=== PATIENT | female | born 1970 | race Caucasian/White ===

== ENCOUNTER → 2022-01-26 14:23 | Outpatient (BNVA) | payer OTHER, SELFPAY | PROVIDERS: PCP Internal Medicine; Visit Provider Nurse Practitioner Family | DX: G43.009 Migraine without aura, not intractable, without status migrainosus (principal); G44.84 Primary exertional headache; M54.2 Cervicalgia; R23.2 Flushing; R06.83 Snoring; G47.19 Other hypersomnia; Z79.899 Other long term (current) drug therapy | CPT/HCPCS: 99202 ==

== ENCOUNTER → 2022-02-02 13:43 | Outpatient (REF) | payer OTHER, SELFPAY | LOC: HO.SL 13:43 | PROVIDERS: PCP Internal Medicine; Visit Provider Nurse Practitioner Family | DX: G47.19 Other hypersomnia (principal); G47.9 Sleep disorder, unspecified; R06.83 Snoring | CPT/HCPCS: 95806 ==

== ENCOUNTER → 2022-03-26 12:32 | Outpatient (BNVA) | payer OTHER, SELFPAY | PROVIDERS: PCP Internal Medicine; Visit Provider Nurse Practitioner Family | DX: G43.009 Migraine without aura, not intractable, without status migrainosus (principal); M54.2 Cervicalgia; G44.84 Primary exertional headache; G47.19 Other hypersomnia; G47.9 Sleep disorder, unspecified; R06.83 Snoring | CPT/HCPCS: 99212 ==

== ENCOUNTER → 2022-04-15 13:27 | Outpatient (BNVA) | payer OTHER, SELFPAY | PROVIDERS: PCP Internal Medicine; Visit Provider Nurse Practitioner Family | DX: G43.009 Migraine without aura, not intractable, without status migrainosus (principal) | CPT/HCPCS: 99211 ==

== ENCOUNTER → 2022-07-21 10:41 | Outpatient (BNVA) | payer OTHER, SELFPAY | PROVIDERS: PCP Internal Medicine; Visit Provider Nurse Practitioner Family | DX: G43.009 Migraine without aura, not intractable, without status migrainosus (principal); M54.2 Cervicalgia; Z79.899 Other long term (current) drug therapy | CPT/HCPCS: 99212 ==

== ENCOUNTER 2022-08-30 09:57 | Emergency (ER) | payer OTHER, SELFPAY ==
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
[2022-08-30 10:20] VITALS: BP 140/87; PULSE 73; RESP 13; TEMP 36.9; O2SAT 100
[2022-08-30 10:40] VITALS: BP 140/87; PULSE 73; RESP 13; TEMP 36.9; O2SAT 100; BMI 30.7
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
[2022-08-30] MEDS: Cyclobenzaprine HCl 10 MG TABLET PO (11:18)
== END 2022-08-30 11:25 | disposition home or self-care (01) ==
PROVIDERS: Emergency Provider Student in an Organized Health Care Education/Training Program; PCP Internal Medicine
DX: S13.4XXA Sprain of ligaments of cervical spine, initial encounter (principal); S80.12XA Contusion of left lower leg, initial encounter; M54.50 Low back pain, unspecified; V43.62XA Car passenger injured in collision with other type car in traffic accident, initial encounter; Y93.9 Activity, unspecified; Y92.410 Unspecified street and highway as the place of occurrence of the external cause; Y99.9 Unspecified external cause status; Z79.899 Other long term (current) drug therapy
CPT/HCPCS: 72100; 73590; 99284

== ENCOUNTER 2023-01-20 07:36 | Outpatient (AMB) | payer OTHER, SELFPAY ==
[2023-01-20 07:54] VITALS: BP 140/98; PULSE 68; O2SAT 100; BMI 31.4
--- NOTE | 2023-01-20 07:54 | MHC.OFFVIS ---
Intake Vital Signs 01/20/23 07:54 Height 5 ft 10 in Weight 219 lb BMI 31.4 BP 140/98 H Blood Pressure Location Lt brachial Position Sitting Pulse 68 Pulse Source Pulse Oximeter Pulse Oximetry (%) 100 Oxygen Delivery Method Room Air Intake Visit Reasons: 6m follow up / LVM Intake Note: Patient presents for 6 month follow up. Allergies ibuprofen [From MOTRIN] Allergy (Unknown, Verified 01/20/23 07:56) ABDOMINAL PAIN Medication List - Last Reconciled 01/20/23 by FUNMI Castellanos amitriptyline 10 mg PO BEDTIME 30 days atorvastatin 40 mg PO BEDTIME blood sugar diagnostic (Freestyle [employer] strips) As directed cholecalciferol (vitamin D3) 50 mcg PO DAILY cyclobenzaprine 10 mg PO BEDTIME PRN ergocalciferol (vitamin D2) 1,250 mcg PO QWEEK gabapentin 600 mg PO QID galcanezumab-gnlm (Emgality Pen) 120 mg subcut ONCE 30 days lancets (FreeStyle Lancets) As directed lisinopril-hydrochlorothiazide 20-25 mg 1 tab PO DAILY magnesium oxide 400 mg PO BEDTIME 30 days meloxicam 15 mg PO DAILY metformin 1,000 mg PO BID omeprazole 20 mg PO DAILY propranolol 20 mg PO TID sertraline 100 mg PO DAILY simethicone (Gas Relief (simethicone)) 160 mg PO BID sucralfate PO sumatriptan succinate 50 - 100 mg orally at onset of headache, may repeat in 2 hrs PRN; max 2 tabs per day or 4 tabs/week (may take with Ibuprofen) 30 days topiramate 100 mg PO BID HPI HPI Comments History of Present Illness Details 52-yr-old female presents for f/u visit. Pt denies any significant interval medical changes. Pt reports her migraine and headache attacks are better with Emgality. She is still compliant w/ Topiramate, Prpranolol, and Gabapentin. She is needing to use Sumatriptan twice a month w/ effect. She denies any adverse effects. [facility] Surgical History H/O hernia repair H/O wrist surgery Hx of appendectomy Hx of laparoscopic adjustable gastric banding Family History Mother Cancer Maternal Grandmother Cancer Social History Alcohol intake: never Patient Tobacco Use Status: Never used Tobacco Review of Systems Const All systems reviewed & are unremarkable except as noted in HPI and below Physical Exam Vital Signs: Last Vital Signs Pulse 68 01/20/23 07:54 BP 140/98 H 01/20/23 07:54 Pulse Ox 100 01/20/23 07:54 Oxygen Delivery Method Room Air 01/20/23 07:54 BMI result Body Mass Index 31.4 Const General: cooperative and no acute distress Orientation/consciousness: patient oriented x3 HEENT Head: Yes normocephalic Resp Effort & Inspection: normal respiratory effort and able to speak in complete sentences Neuro General: patient oriented x3, gait normal and CN's II-XI intact bilaterally Cognition (Neuro): normal cognition Motor exam (neuro): 5/5 motor strength present throughout Psych Appearance: grossly normal Mental Status: mental status grossly normal Speech and movement: Normal speech and movement present Affect: normal affect Attitude: cooperative Thought process: Normal thought process present Assessment & Plan Assessment & Plan (1) Migraine without aura: Code(s): G43.009 - Migraine without aura, not intractable, without status migrainosus (2) Exertional headache: Comment: provoked by laughing Code(s): G44.84 - Primary exertional headache Plan For cervicalgia: Monitor clinically ? For acute headache treatment: Continue Sumatriptan prn. May take w/ Ibuprofen or Tylenol. Previous acute migraine medication trials: unsure Acute migraine medication contraindications:none at this time. ? For headache prevention medication: Continue Magnesium 400mg qhs Continue Emgality 120mg sc q month, as pt is experiencing good clinical results from use. For now, continue Topiramate 100mg bid, Propranolol 20mg TID and Gabapentin 600mg QID. Previous migraine prevention medication trials: Topiramate 100mg bid, Propranolol 20mg TID, Gabapentin 600mg QID, Amitriptyline 10mg qhs- ineffective. Migraine prevention medication contraindications: Aimovig d/t constipation. Future considerations- Botox tx. ? f/u in 6 months or sooner prn. Medications: Refilled galcanezumab-gnlm (Emgality Pen) 120 mg subcut ONCE 1 mL 6RF 30 days G43.009 - Migraine without aura, not intractable, without status migrainosus sumatriptan succinate 50 - 100 mg orally at onset of headache, may repeat in 2 hrs PRN; max 2 tabs per day or 4 tabs/week (may take with Ibuprofen) 12 tabs 6RF migraine headache 30 days magnesium oxide may hold for loose stools 400 mg PO BEDTIME 30 tabs 6RF 30 days Discontinued amitriptyline Discontinued Reason: Patient Completed Course 10 mg PO BEDTIME 30 days 30 tabs 3RF Coding Level of Care Code Est Pt Level 4 (74929) Diagnoses Migraine without aura G43.009 Exertional headache G44.84
== END 2023-01-20 08:18 | disposition home or self-care (01) ==
PROVIDERS: PCP Internal Medicine; Visit Provider Nurse Practitioner Family
DX: G43.009 Migraine without aura, not intractable, without status migrainosus (principal); G44.84 Primary exertional headache
CPT/HCPCS: 99214

== ENCOUNTER → 2023-01-20 07:36 | Outpatient (BNVA) | payer OTHER, SELFPAY | PROVIDERS: PCP Internal Medicine; Visit Provider Nurse Practitioner Family | DX: G43.009 Migraine without aura, not intractable, without status migrainosus (principal); G44.84 Primary exertional headache | CPT/HCPCS: 99212 ==

== ENCOUNTER 2023-05-28 13:38 | Outpatient (REF) | payer OTHER, SELFPAY ==
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
== END 2023-05-28 13:39 | disposition home or self-care (01) ==
LOC: HO.NEURO 13:38
PROVIDERS: PCP Internal Medicine; Visit Provider Orthopaedic Surgery
DX: G56.02 Carpal tunnel syndrome, left upper limb (principal)
CPT/HCPCS: 95886; 95909

== ENCOUNTER → 2023-05-28 13:46 | Outpatient (BNV) | payer OTHER, SELFPAY | PROVIDERS: PCP Internal Medicine; Visit Provider Physical Medicine & Rehabilitation | DX: M79.632 Pain in left forearm (principal) | CPT/HCPCS: 95886; 95909 ==

== ENCOUNTER 2023-07-22 07:37 | Outpatient (AMB) | payer OTHER, SELFPAY ==
--- NOTE | 2023-07-22 07:53 | A.OFFVIS_ITS ---
Vital Signs 07/22/23 07:54 Height 5 ft 10 in Weight 226 lb BMI 32.4 BP 124/76 Blood Pressure Location Rt brachial Position Sitting Pulse 51 Pulse Source Pulse Oximeter Pulse Oximetry (%) 98 Oxygen Delivery Method Room Air Intake Visit Reasons: 6 mo f/u - Migraines-CONF Intake Note: Patient presents for 6 month follow up. patient migraine injection is helping a lot . Community Organization Worker Required: Yes Community Organization Worker Name: Tish Berg Allergies ibuprofen [From MOTRIN] Allergy (Unknown, Verified 07/22/23 07:57) ABDOMINAL PAIN Medication List - Last Reconciled 07/22/23 by FUNMI Castellanos atorvastatin 40 mg PO BEDTIME blood sugar diagnostic (Freestyle In[employer] strips) As directed cholecalciferol (vitamin D3) 50 mcg PO DAILY cyclobenzaprine 10 mg PO BEDTIME PRN ergocalciferol (vitamin D2) 1,250 mcg PO QWEEK gabapentin 600 mg PO QID galcanezumab-gnlm (Emgality Pen) 120 mg subcut ONCE 30 days lancets (FreeStyle Lancets) As directed lisinopril-hydrochlorothiazide 20-25 mg 1 tab PO DAILY magnesium oxide 400 mg PO BEDTIME 30 days meloxicam 15 mg PO DAILY metformin 1,000 mg PO BID omeprazole 20 mg PO DAILY propranolol 20 mg PO TID sertraline 100 mg PO DAILY simethicone (Gas Relief (simethicone)) 160 mg PO BID sucralfate PO sumatriptan succinate 50 - 100 mg orally at onset of headache, may repeat in 2 hrs PRN; max 2 tabs per day or 4 tabs/week (may take with Ibuprofen) 30 days topiramate 100 mg PO BID HPI Comments Details: 53-yr-old female presents for f/u visit. Pt denies any significant interval medical changes. Pt is asking if her Emgality needs to be held prior to her upcoming knee surgery. Pt states she is only having an occasional milder headache that resolves after taking Sumtriptan. She is compliant w/ Emgality, Propranolol, Topiramate. States has regular eye exams. Denies kidney stones. States her neck can be painful which is sometimes a/w bilateral hand pain, and sometimes weakness. She states it is her back that is most bothersome- she has had cortisone injections, but this has not been helping. She is f/b Family Physiatry- pt states for her back but not her neck. Baseline headache characteristics: Severe, pressure pain starting in either the left gnosticism and moves into the left eye, or in the bridge of her nose and moves up- both are a pressure type pain a/w blurry vision, diplopia (can be horizontal or vertical), allodynia, top of head coldness and pins/needles, photophobia, phonophobia, osmophobia, nausea, vomiting, internal head spinning and feeling off balance, brain fog, activity intolerance, nose and cheeks become red, left facial droop and left sided weakness.. [facility] Surgical History H/O hernia repair Hx of appendectomy H/O wrist surgery Hx of laparoscopic adjustable gastric banding Family History Mother Cancer Maternal Grandmother Cancer Social History Alcohol intake: never Patient Tobacco Use Status: Never used Tobacco Physical Exam Vital Signs: Last Vital Signs Pulse 51 07/22/23 07:54 BP 124/76 07/22/23 07:54 Pulse Ox 98 07/22/23 07:54 Oxygen Delivery Method Room Air 07/22/23 07:54 BMI result Body Mass Index 32.4 Const General: cooperative and no acute distress Orientation/consciousness: patient oriented x3 Resp Effort & Inspection: normal respiratory effort and able to speak in complete sentences Neuro Other: Slow to stand, standing elicits back pain, antalgic gait. General: patient oriented x3 Cranial nerves: Yes CN's II-XII intact bilaterally Cognition (Neuro): normal cognition Psych Appearance: grossly normal Mental Status: mental status grossly normal Speech and movement: Normal speech and movement present Affect: normal affect Attitude: cooperative Assessment & Plan Assessment & Plan (1) Migraine without aura: Code(s): G43.009 - Migraine without aura, not intractable, without status migrainosus Category: Medical (2) Cervicalgia: Code(s): M54.2 - Cervicalgia Category: Medical Plan For cervicalgia: Will request notes and work-up from Family Physiatry. If not recently completed, will consider f/u c-spine imaging. ? For acute headache treatment: Continue Sumatriptan prn. May take w/ Ibuprofen or Tylenol. Previous acute migraine medication trials: unsure Acute migraine medication contraindications:none at this time. ? For headache prevention medication: Continue Magnesium 400mg qhs Continue Emgality 120mg sc q month, as pt is experiencing good clinical results from use. For now, continue Topiramate 100mg bid, Propranolol 20mg TID and Gabapentin 600mg QID. Previous migraine prevention medication trials: Topiramate 100mg bid, Propranolol 20mg TID, Gabapentin 600mg QID, Amitriptyline 10mg qhs- ineffective. Migraine prevention medication contraindications: Aimovig d/t constipation. Future considerations- Botox tx. ? f/u in 6 months or sooner prn. Medications: Refilled magnesium oxide may hold for loose stools 400 mg PO BEDTIME 30 tabs 6RF 30 days sumatriptan succinate 50 - 100 mg orally at onset of headache, may repeat in 2 hrs PRN; max 2 tabs per day or 4 tabs/week (may take with Ibuprofen) 12 tabs 6RF migraine headache 30 days Coding Level of Care Code Est Pt Level 4 (75115) Diagnoses Migraine without aura G43.009 Cervicalgia M54.2
[2023-07-22 07:54] VITALS: BP 124/76; PULSE 51; O2SAT 98; BMI 32.4
== END 2023-07-22 08:30 | disposition home or self-care (01) ==
PROVIDERS: PCP Internal Medicine; Visit Provider Nurse Practitioner Family
DX: G43.009 Migraine without aura, not intractable, without status migrainosus (principal); M54.2 Cervicalgia
CPT/HCPCS: 99214

== ENCOUNTER → 2023-07-22 07:37 | Outpatient (BNVA) | payer OTHER, SELFPAY | PROVIDERS: PCP Internal Medicine; Visit Provider Nurse Practitioner Family | DX: G43.009 Migraine without aura, not intractable, without status migrainosus (principal); M54.2 Cervicalgia | CPT/HCPCS: 99212 ==

== ENCOUNTER 2024-02-15 08:42 | Outpatient (AMB) | payer OTHER, SELFPAY ==
--- NOTE | 2024-02-15 08:47 | MHC.OFFVIS ---
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: No Accompanied by: Self / Same As Patient Allergies ibuprofen [From MOTRIN] Allergy (Unknown, Verified 02/15/24 08:52) ABDOMINAL PAIN Medication List - Last Reconciled 02/15/24 by FUNMI Castellanos atorvastatin 40 mg PO BEDTIME blood sugar diagnostic (Freestyle [employer] strips) As directed cholecalciferol (vitamin D3) 50 mcg PO DAILY cyclobenzaprine 10 mg PO BEDTIME PRN ergocalciferol (vitamin D2) 1,250 mcg PO QWEEK gabapentin 600 mg PO QID galcanezumab-gnlm (Emgality Pen) 120 mg subcut ONCE 30 days lancets (FreeStyle Lancets) As directed lisinopril-hydrochlorothiazide 20-25 mg 1 tab PO DAILY magnesium oxide 400 mg PO BEDTIME 30 days meloxicam 15 mg PO DAILY metformin 1,000 mg PO BID omeprazole 20 mg PO DAILY propranolol 20 mg PO TID sertraline 100 mg PO DAILY simethicone (Gas Relief (simethicone)) 160 mg PO BID sucralfate PO sumatriptan succinate 50 - 100 mg orally at onset of headache, may repeat in 2 hrs PRN; max 2 tabs per day or 4 tabs/week (may take with Ibuprofen) 30 days topiramate 100 mg PO BID trazodone 50 mg PO BEDTIME PRN Do you need a note to return to daycare/school/sports/work: No HPI Comments Details: 53-yr-old female presents for f/u visit of sleep and migraine Pt reports she underwent right TKR approx 6 months ago, and her knee is feeling much better. Pt reports her migarines are well-controlled. She states she is having just an occasional milder headache that resolves after taking Sumtriptan. She is compliant w/ Emgality, Propranolol, Topiramate. Using Sumatriptan once a month. States has regular eye exams. Denies kidney stones. Baseline headache characteristics: Severe, pressure pain starting in either the left yarsanism and moves into the left eye, or in the bridge of her nose and moves up- both are a pressure type pain a/w blurry vision, diplopia (can be horizontal or vertical), allodynia, top of head coldness and pins/needles, photophobia, phonophobia, osmophobia, nausea, vomiting, internal head spinning and feeling off balance, brain fog, activity intolerance, nose and cheeks become red, left facial droop and left sided weakness.. Patient states that her neck is still prone to being tight and painful. She is f/b Family Physiatry. For chronic low back pain, and states that they will address her neck symptoms if I put a referral in for them to specifically address her neck. She also notes that she has been having difficulty falling asleep. She states that she usually goes to bed at 19:00, but does not fall asleep till 00:00, and wakes up around 08:00. She notes that when she is not sleeping well she can become more anxious. But also when she is more anxious, she may not sleep as well. She is prone to ruminating thoughts. She tends to watch TV in her living room. She can not exercise for very long, states about 5 minutes, due to her body pains. She denies taking any caffeinated products. [facility] Surgical History H/O hernia repair Hx of appendectomy H/O wrist surgery Hx of laparoscopic adjustable gastric banding Family History Mother Cancer Maternal Grandmother Cancer Social History Alcohol intake: never Patient Tobacco Use Status: Never used Tobacco Physical Exam Vital Signs: Last Vital Signs Pulse 62 02/15/24 08:48 BP 144/100 H 02/15/24 08:48 Pulse Ox 98 02/15/24 08:48 Oxygen Delivery Method Room Air 02/15/24 08:48 BMI result Body Mass Index 32.9 Const General: cooperative and no acute distress Orientation/consciousness: patient oriented x3 Resp Effort & Inspection: normal respiratory effort and able to speak in complete sentences Neuro Other: Slow to stand, antalgic gait. General: patient oriented x3 Cranial nerves: Yes CN's II-XII intact bilaterally Cognition (Neuro): normal cognition Psych Appearance: grossly normal Mental Status: mental status grossly normal Speech and movement: Normal speech and movement present Affect: normal affect Attitude: cooperative Assessment & Plan Assessment & Plan (1) Migraine without aura: Code(s): G43.009 - Migraine without aura, not intractable, without status migrainosus Category: Medical (2) Cervicalgia: Code(s): M54.2 - Cervicalgia Category: Medical (3) Sleep difficulties: Code(s): G47.9 - Sleep disorder, unspecified Category: Medical Plan For cervicalgia: Referral placed to Family Physiatry. For sleep difficulties: Discussed that patient likely does not need to go to bed at 19:00, if she is actually sleeping between midnight and 08:00, as 8 hours of nightly sleep is within normal range. Discussed that current evidence suggests sleeping greater than 9 hours and less than 6 hours at night are both associated with overall negative health outcomes. Reviewed strategies to optimize her sleep hygiene. Such as going to bed between 11 and 00:00. Increasing paste physical activity earlier in the day. Engaging in relaxing activities in the later day and evening. [place] sleep hygiene education she shared with patient. ? For acute headache treatment: Continue Sumatriptan prn. May take w/ Ibuprofen or Tylenol. Previous acute migraine medication trials: unsure Acute migraine medication contraindications:none at this time. ? For headache prevention medication: Continue Magnesium 400mg qhs Continue Emgality 120mg sc q month, as pt is experiencing good clinical results from use. For now, continue Topiramate 100mg bid, Propranolol 20mg TID and Gabapentin 600mg QID. Previous migraine prevention medication trials: Topiramate 100mg bid, Propranolol 20mg TID, Gabapentin 600mg QID, Amitriptyline 10mg qhs- ineffective. Migraine prevention medication contraindications: Aimovig d/t constipation. Future considerations- Botox tx. ? f/u in 6 months or sooner prn. Orders: Referrals Physiatry Referral M54.2 - Cervicalgia Medications: Refilled galcanezumab-gnlm (Emgality Pen) 120 mg subcut ONCE 30 days 1 mL 6RF G43.009 - Migraine without aura, not intractable, without status migrainosus sumatriptan succinate (0.5 - 1 x 100 mg) 50 - 100 mg orally at onset of headache, may repeat in 2 hrs PRN; max 2 tabs per day or 4 tabs/week (may take with Ibuprofen) 30 days 12 tabs 6RF migraine headache Coding Level of Care Code Est Pt Level 4 (24073) Diagnoses Migraine without aura G43.009 Cervicalgia M54.2 Sleep difficulties G47.9
[2024-02-15 08:48] VITALS: BP 144/100; PULSE 62; O2SAT 98; BMI 32.9
== END 2024-02-15 09:36 | disposition home or self-care (01) ==
PROVIDERS: PCP Internal Medicine; Visit Provider Nurse Practitioner Family
DX: G43.009 Migraine without aura, not intractable, without status migrainosus (principal); M54.2 Cervicalgia; G47.9 Sleep disorder, unspecified
CPT/HCPCS: 99214

== ENCOUNTER → 2024-02-15 08:42 | Outpatient (BNVA) | payer OTHER, SELFPAY | PROVIDERS: PCP Internal Medicine; Visit Provider Nurse Practitioner Family | DX: G43.009 Migraine without aura, not intractable, without status migrainosus (principal); G47.9 Sleep disorder, unspecified; M54.2 Cervicalgia | CPT/HCPCS: 99212 ==

== ENCOUNTER 2024-07-27 09:50 | Outpatient (AMB) | payer OTHER, SELFPAY ==
--- NOTE | 2024-07-27 09:55 | MHC.OFFVIS ---
Vital Signs 07/27/24 09:56 Height 5 ft 10 in Weight 234 lb 2 oz BMI 33.6 BP 122/89 Blood Pressure Location Lt brachial Position Sitting Pulse 83 Pulse Source Pulse Oximeter Pulse Oximetry (%) 97 Oxygen Delivery Method Room Air Intake Visit Reasons: Follow up 6mo Intake Note: Patient here for a follow-up. 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 Accompanied by: Daughter Allergies ibuprofen [From MOTRIN] Allergy (Unknown, Verified 07/27/24 10:09) ABDOMINAL PAIN Medication List - Last Reconciled 07/27/24 by FUNMI Castellanos atorvastatin 40 mg PO BEDTIME blood sugar diagnostic (Freestyle [employer] strips) As directed cholecalciferol (vitamin D3) 50 mcg PO DAILY cyclobenzaprine 10 mg PO BEDTIME PRN ergocalciferol (vitamin D2) 1,250 mcg PO QWEEK gabapentin 600 mg PO QID galcanezumab-gnlm (Emgality Pen) 240 mg (2 mL) subcut ONCE 30 days lancets (FreeStyle Lancets) As directed lisinopril-hydrochlorothiazide 20-25 mg 1 tab PO DAILY magnesium oxide 400 mg PO BEDTIME 30 days meloxicam 15 mg PO DAILY metformin 1,000 mg PO BID omeprazole 20 mg PO DAILY propranolol 20 mg PO TID sertraline 100 mg PO DAILY simethicone (Gas Relief (simethicone)) 160 mg PO BID sumatriptan succinate 50 - 100 mg orally at onset of headache, may repeat in 2 hrs PRN; max 2 tabs per day or 4 tabs/week (may take with Ibuprofen) 30 days topiramate 100 mg PO BID trazodone 50 mg PO BEDTIME PRN Do you need a note to return to daycare/school/sports/work: No HPI Comments Details: 54-yr-old female presents for f/u visit of sleep and migraine Pt reports had an interval lumbar injection, which helped some but she needs to have a l-spine MRI. F/b [facility]. Pt reports her migraines are well-controlled, as long as she has her Emgality. Unfortunately, a few months ago, she did not receive her Emgality for 2 months d/t insurance/pharmacy issue. And during this time, she had a marked increase in her migraines. However, since resuming Emgality (we restarted her w/ the loading dose)- her migraines have decreased significantly. Rarely having a breakthrough migraine attack. She states she is again having just an occasional milder headache that resolves after taking Sumtriptan. She is alsocompliant w/ Gabapentin, Propranolol, Topiramate. Using Sumatriptan once a month. Denies vision changes- has not had a recent eye exam. Denies kidney stones. Baseline headache characteristics: Severe, pressure pain starting in either the left mandaeism and moves into the left eye, or in the bridge of her nose and moves up- both are a pressure type pain a/w blurry vision, diplopia (can be horizontal or vertical), allodynia, top of head coldness and pins/needles, photophobia, phonophobia, osmophobia, nausea, vomiting, internal head spinning and feeling off balance, brain fog, activity intolerance, nose and cheeks become red, left facial droop and left sided weakness.. [facility] Surgical History H/O hernia repair Hx of appendectomy H/O wrist surgery Hx of laparoscopic adjustable gastric banding Family History Mother Cancer Maternal Grandmother Cancer Social History Alcohol intake: never Patient Tobacco Use Status: Never used Tobacco Physical Exam Vital Signs: Last Vital Signs Pulse 83 07/27/24 09:56 BP 122/89 07/27/24 09:56 Pulse Ox 97 07/27/24 09:56 Oxygen Delivery Method Room Air 07/27/24 09:56 BMI result Body Mass Index 33.6 Const General: cooperative and no acute distress Orientation/consciousness: patient oriented x3 Resp Effort & Inspection: normal respiratory effort and able to speak in complete sentences Neuro Other: Slow to stand, antalgic gait. General: patient oriented x3 Cranial nerves: Yes CN's II-XII intact bilaterally Cognition (Neuro): normal cognition Psych Appearance: grossly normal Mental Status: mental status grossly normal Speech and movement: Normal speech and movement present Affect: normal affect Attitude: cooperative Assessment & Plan Assessment & Plan (1) Migraine without aura: Code(s): G43.009 - Migraine without aura, not intractable, without status migrainosus Category: Medical (2) Cervicalgia: Code(s): M54.2 - Cervicalgia Category: Medical (3) Sleep difficulties: Code(s): G47.9 - Sleep disorder, unspecified Category: Medical Plan For cervicalgia and back pain: Follow-up w/ [facility] as scheduled. For sleep difficulties: Continue to optimize her sleep hygiene. Such as going to bed between 11 and 00:00. Increasing paste physical activity earlier in the day. Engaging in relaxing activities in the later day and evening. [place]altese sleep hygiene education she shared with patient. ? For acute headache treatment: Continue Sumatriptan prn. May take w/ Ibuprofen or Tylenol. Previous acute migraine medication trials: unsure Acute migraine medication contraindications:none at this time. ? For headache prevention medication: Continue Magnesium 400mg qhs Continue Emgality 120mg sc q month, as pt is experiencing good clinical results from use (Has had > 30% reduction in monthly migraine days from use). Continue Topiramate 100mg bid, Propranolol 20mg TID and Gabapentin 600mg QID. Advised to have regualr eye exams while on Topiramate Previous migraine prevention medication trials: Topiramate 100mg bid, Propranolol 20mg TID, Gabapentin 600mg QID, Amitriptyline 10mg qhs- ineffective w/o Emgality. Migraine prevention medication contraindications: Aimovig d/t constipation. Future considerations- Botox tx. ? f/u in 6 months or sooner prn. Medications: Changed From galcanezumab-gnlm (Emgality Pen) 240 mg (2 mL) subcut ONCE 30 days 2 mL 0RF G43.009 - Migraine without aura, not intractable, without status migrainosus To galcanezumab-gnlm (Emgality Pen) 120 mg subcut Q30D 30 days 1 mL 6RF G43.009 - Migraine without aura, not intractable, without status migrainosus Refilled sumatriptan succinate (0.5 - 1 x 100 mg) 50 - 100 mg orally at onset of headache, may repeat in 2 hrs PRN; max 2 tabs per day or 4 tabs/week (may take with Ibuprofen) 30 days 12 tabs 6RF migraine headache Coding Level of Care Code Est Pt Level 4 (11941) Diagnoses Migraine without aura G43.009 Cervicalgia M54.2 Sleep difficulties G47.9
[2024-07-27 09:56] VITALS: BP 122/89; PULSE 83; O2SAT 97; BMI 33.6
--- OUTSIDE RECORDS SUMMARY | 2024-07-27 10:58 | XMS_ITS | Clinical Summary ---
Author Organization [facility] [address] [facility] Address [address] [place] [address] Phone Care Team Providers Care Telephone Installer Name Role Phone Radha Nash MD Primary Care Prov ider Allergies No known active allergies Medications galcanezumab-gnl m (Emgality Pen) 120 mg/mL injection pen Inject 1 mL (120 mg total) under the skin. 023 Active famotidine (PEPCID) 20 mg tablet Take 1 tablet (20 mg total) by mouth 2 (two) times a day. 024 Active simethicone (MYLICON) 80 mg chewable tablet Chew 1 tablet (80 mg total) every 6 (six) hours if needed. 022 Active hydroCHLOROthiaz mildred (HYDRODIURIL) 50 mg tablet Take 1 tablet (50 mg total) by mouth 1 (one) time each day. 023 Active MAGNESIUM OXIDE ORAL Take 40 mg by mouth 1 (one) time each day. 023 Active FREESTYLE LANCETS MISC 1 EA by extracorporeal route 1 (one) time each day. 022 Active sertraline (ZOLOFT) 100 mg tablet Take 1 tablet (100 mg total) by mouth 1 (one) time each day. Active SUMAtriptan (IMITREX) 100 mg tablet Take 1 tablet (100 mg total) by mouth. Active ursodioL (ACTIGALL) 300 mg capsule Take 2 capsules (600 mg total) by mouth 1 (one) time each day. For 180 days Active wheat dextrin (Benefiber Clear SF, dextrin,) 3 gram/3.5 gram powder in packet Take 4 g by mouth 1 (one) time each day. Active ergocalciferol (VITAMIN D-2) 1,250 mcg (50,000 unit) capsule Take 1 capsule (50,000 Units total) by mouth 1 (one) time per week. Active acetaminophen (TYLENOL) 500 mg tablet Take 2 tablets (1,000 mg total) by mouth every 8 (eight) hours if needed for mild pain. Active blood sugar diagnostic (FreeStyle Lite Strips) test strip 1 each by Other route 1 (one) time each day. Active celecoxib (CeleBREX) 200 mg capsule Take 1 capsule (200 mg total) by mouth. Active diphenhydrAMINE (BENADRYL) 25 mg capsule Take 1 capsule (25 mg total) by mouth every 6 (six) hours if needed for sleep. Active traZODone (DESYREL) 50 mg tablet Take 1 tablet (50 mg total) by mouth. Active lisinopril (PRINIVIL,ZESTRI L) 40 mg tablet Take 1 tablet (40 mg total) by mouth 1 (one) time each day. Active phentermine 15 mg capsuleIndicatio ns:Class 1 obesity due to excess calories with body mass index (BMI) of 34.0 to 34.9 in adult, unspecified whether serious comorbidity present Take 1 capsule (15 mg total) by mouth 1 (one) time each day before breakfast. Max Daily Amount: 15 mg 30 each 025 2024 Active topiramate (Topamax) 50 mg tabletIndication s:Class 1 obesity due to excess calories with body mass index (BMI) of 34.0 to 34.9 in adult, unspecified whether serious comorbidity present Take 1 tablet (50 mg total) by mouth at bedtime. 30 each 2 025 2024 Active metFORMIN (GLUCOPHAGE) 1,000 mg tablet Take 1 tablet (1,000 mg total) by mouth 2 (two) times a day with meals. 60 tablet 025 Active atorvastatin (LIPITOR) 40 mg tablet Take 1 tablet (40 mg total) by mouth 1 (one) time each day. 30 tablet 025 Active omeprazole (PriLOSEC) [address] capsule Take 1 capsule (40 mg total) by mouth 1 (one) time each day. Do not crush or chew. 30 each 025 Active gabapentin (NEURONTIN) 600 mg tablet Take 1 tablet (600 mg total) by mouth 3 (three) times a day if needed (pain). 120 tablet 025 Active metFORMIN (GLUCOPHAGE) 1,000 mg tablet Take 1 tablet (1,000 mg total) by mouth 2 (two) times a day with meals. 024 2024 Discontinued(R eorder) omeprazole (PriLOSEC) [address] capsule Take 1 capsule (40 mg total) by mouth. 023 2024 Discontinued(R eorder) topiramate (TOPAMAX) 100 mg tablet Take 1 tablet (100 mg total) by mouth 2 (two) times a day. 023 2024 Discontinued atorvastatin (LIPITOR) 40 mg tablet Take 1 tablet (40 mg total) by mouth 1 (one) time each day. 024 2024 Discontinued(R eorder) aspirin 81 mg EC tablet Take 1 tablet (81 mg total) by mouth 2 (two) times a day with meals. 024 2024 Discontinued(N on-compliance) traMADoL (ULTRAM) 50 mg tablet Take 1 tablet (50 mg total) by mouth. 024 2024 Discontinued(T herapy completed) gabapentin (NEURONTIN) 600 mg tablet TAKE 1 TABLET BY MOUTH FOUR TIMES A DAY 120 tablet 1 024 05/20/ 2025 Discontinued(R eorder) semaglutide (Wegovy) 2.4 mg/0.75 mL injection penIndications:C lass 1 obesity due to excess calories with serious comorbidity and body mass index (BMI) of 32.0 to 32.9 in adult,Type 2 diabetes mellitus with neurological manifestation ([facility]/HCC V24, [facility] V28),Hypertensio n, unspecified type,Mixed hyperlipidemia Inject 2.4 mg under the skin every 7 (seven) days. 3 mL 025 2024 Discontinued(A lternate therapy) Active Problems Problem Noted Date Diagnosed Date Rotator cuff tendinitis, left 11/24/2023 Class 1 obesity due to exces s calories with serious comorbidity and body mass index (BMI) of 33.0 to 33.9 in adult 11/24/2023 Gait instability 04/01/2023 Post-traumatic osteoarthritis of right knee 03/18 Primary osteoarthritis of left knee 04/01/2023 Left hand pain 01/01/2023 S/P gastric sleeve procedure 01/06/2022 Hepatomegaly 01/01/2022 Overview (04/23/2023): 19.1 cm US 12/01/21 [facility] ED Pelvic pain 06/04/2021 Overview (04/23/2023): Last Assessment & Plan: Explained no clear Records Officer etiology. Could be MSK or GI in nature. I recommended pelvic US to follow up given history of ovarian cysts. If normal, will refer back to PCP. GC/CT testing performed. Type 2 diabetes mellitus wit h neurological manifestation (CMS/HCC V24, [facility] V28) 06/02/2021 Assessment & Plan (07/18/2024 9:12 AM EDT): Orders: Lipid panel with reflex to direct LDL; Future Comprehensive metabolic panel; Future Hemoglobin A1c; Future Microalbumin creatinine urine ratio; Future Eating disorder, unspecified 06/02/2021 Overview (04/23/2023): Sarah López, PH.D. 07/26/2020 Left carpal tunnel syndrome 10/16/2020 Microalbuminuria 02/29/2020 Hepatic steatosis 11/28/2018 Chronic constipation 11/01/2018 GERD with esophagitis 10/31/2018 Anxiety 07/22/2017 Depression 07/22/2017 Overview (04/23/2023): F/u [facility] Assessment & Plan (07/18/2024 9:19 AM EDT): DDD (degenerative disc disease), lumbar 12/22/19 17 Herniated intervertebral disc of lumbar spine Vitamin D deficiency 05/28/2016 HTN (hypertension) 09/12/2015 Assessment & Plan (07/18/2024 9:19 AM EDT): Hyperlipidemia 09/12/2015 Assessment & Plan (07/18/2024 9:19 AM EDT): Type 2 diabetes mellitus wit h renal manifestations ([facility]/HCC V24, CMS/HCC V28) 09/12/2015 Encounters Date Type Department Care Team Description 07/18/2024 8:45 AM EDT Office Visit Adult Medicine [address] [phone] Radha Nash MD Type 2 diabetes mellitus with neurological manifestation (CMS/HCC V24, CMS/HCC V28) (Primary Dx); Hypertension, unspecified type; Mixed hyperlipidemia; Recurrent major depressive disorder, in partial remission (CMS/HCC V24) 07/04/2024 1:15 PM EDT Office Visit Bariatric Surgery - [address] [phone] Savage Rutledge MD Class 1 obesity due to excess calories with body mass index (BMI) of 34.0 to 34.9 in adult, unspecified whether serious comorbidity present (Primary Dx) 05/24/2024 Telephone Adult Medicine [address], [place] [phone] Brigid Zhong SC 05/10/2024 Telephone Adult Medicine [facility] [place] [id number] [place] [phone] Radha Nash MD Request For Order(s); TB Test from Last 3 Months Immunizations Name Administration Dates Next Due Influenza Quadravalent, MDCK , 0.5ml, preservative free (Flucelvax) 6mo and older 10/22/2022,05/05/2021,02/28/2020,03/02 Influenza Quadravalent, MDCK , 0.5ml, with preservative (Flucelvax) 6mo and older 01/29/2022 Influenza trivalent, with pr eservative (Fluzone; Afluria) 6mo and older 01/29/2022,01/05/2019,04/08/2016 PPD Test 06/08/2018,05/25/2018,04/08/2016 Pneumococcal polysaccharide 23 valent (Pneumovax 23) 2yo and older 03/02/2018 Tdap Tetanus diptheria acell ular pertussis (Boostrix; Adacel) 7yo and older 04/08/2016 Surgical History Surgery Date Site/Laterality Comments WRIST SURGERY 12/30/2005, 7 Left PROCEDURE: HISTORICAL WRIST SURGERY; COMMENT: ? recurrent TFCC tear repair,Galeazzi fx stabilization OTHER SURGICAL HISTORY 2005 PROCEDURE: HISTORY OTHER; COMMENT: lap band placed 2005, removal 2010 following reflux and pain. Has gradually regained. OTHER SURGICAL HISTORY 06/12/2008 PROCEDURE: HISTORY OTHER; COMMENT: ENDOMETRIAL ABLATION WRIST SURGERY 10/30/2004 Left PROCEDURE: HISTORICAL WRIST SURGERY; COMMENT: repai TFCC tear L wrist OTHER SURGICAL HISTORY 06/13/2004 Left PROCEDURE: HISTORY OTHER; COMMENT: ORIF radial head fx, dislocate ulnar joint OTHER SURGICAL HISTORY 07/27/2005 PROCEDURE: HISTORY OTHER; COMMENT: Tubal Ligation aborted-adhesions APPENDECTOMY PROCEDURE: MS APPENDECTOMY HERNIA REPAIR PROCEDURE: MS RPR 1ST INGUN HRNA AGE 6 MO-5 YRS REDUCIBLE Medical History Medical History Date Comments HTN (hypertension) 09/12/2015 DX:HTN (hyper tension) Hyperlipidemia 09/12/2015 DX:Hyperlipidemi a GERD with esophagitis 10/31/2018 DX:GERD wi th esophagitis Low back pain DX:Low back pain ; COMMENT: Dr. 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 07/31/2020 DX:Degenerative tear of tria ngular fibrocartilage complex (TFCC) of left wrist Depression 07/22/2017 DX:Depression; C OMMENT: F/u psychiatry [facility] Hepatic steatosis 11/28/2018 DX:Hepatic rlof atosis Herniated intervertebral dis c of lumbar spine 12/21/2016 DX:Herniated intervertebral disc of lumbar spine History of suicidal ideation 07/22/2017 DX: History of suicidal ideation Microalbuminuria 02/29/2020 DX:Microalbumin uria Vitamin D deficiency 05/28/2016 DX:Vitamin D deficiency Eating disorder, unspecified 06/02/2021 DX: Eating disorder, unspecified; COMMENT: Sarah López, PH.D. 07/26/2020 Hx of bariatric surgery 06/02/2021 DX:Hx of bariatric surgery; COMMENT: Lap band 2005, removed 2010. Hepatomegaly 01/01/2022 DX:Hepatomegaly; COMMENT: 19.1 cm US 12/01/21 [facility] ED Family History Medical History Relation Name Comments Other: bone cancer Maternal Grandmother Other: heart disease Maternal Grandmother Diabetes Mother 77 Uterine cancer Sister 1 Relation Name Status Comments Brother unknown Daughter 1 Alive Daughter 2 Alive Father Alive Maternal Grandmother Mother heart disease, DM Sister 1 Sister 2 accident Son 1 Alive Son 2 Alive Son 3 Alive Son 4 Alive Social History Tobacco Use Types Packs/Day Years Used Date Smoking Tobacco: Never Smokeless Tobacco: Never Tobacco Cessation:Counseling Given: Not Answered Alcohol Use Standard Drinks/Week Comments No 0 (1 standard drink = 0.6 oz pur e alcohol) Housing Instability Answer Date Recorde d Are you worried that in the next 2 months you may not have stable housing? No 01/07/2024 Food Access & Nutrition Answer Date Rec orded Do you have access to a vari ety of food including fruits and vegetables? Yes 01/07/2024 Health Literacy Answer Date Recorded How often do you need to hav e someone help you when you read instructions, pamphlets, or other written material from your doctor or pharmacy? Never 01/07/2024 Caregiver: How often do you need to have someone help you when you read instructions, pamphlets, or other written material from your doctor or pharmacy? Not on file 01/07/2024 Financial Risk Answer Date Recorded How hard is it for you to pa y for the very basics like food, housing, medical care, and air conditioning / heating? Very hard 01/07/2024 Transportation Answer Date Recorded Has the lack of transportati on kept you from meetings, work, or from getting things needed for daily living? No Has the lack of transportati on kept you from medical appointments or from getting medications? No 01/07/2024 Social Isolation Answer Date Recorded How often do you feel lonely or isolated from th ose around you? Never 01/07/2024 Food Risk Answer Date Recorded Within the past 12 months we worried whether our food would run out before we got money to buy more. Never true 01/07/2024 Within the past 12 months th e food we bought just didn't last and we didn't have money to get more. Never true 01/07/2024 Dependent Care Answer Date Recorded Do you need help finding or paying for care for your loved ones. For example, school childcare attendant or elderly care for an older adult? No 01/07/2024 Education Answer Date Recorded Do you think completing more education or training, like finishing a GED, going to college, or learning a trade, would be helpful for you? No 01/07/2024 Employment and Income Answer Date Recor ded During the last four weeks, have you been actively looking for work? No 01/07/2024 Living Situation Answer Date Recorded What is your living situation? 1 03/08/2023 Comments No Sex and Gender Information Value Date Recorded Sex Assigned at Not on file Legal Sex Female 5:08 AM EST Gender Identity Not on file Sexual Orientation Not on file Obstetrics History Last Filed Vital Signs Vital Sign Reading Time Taken Comments Blood Pressure 130/70 07/18/2024 9:10 AM EDT Pulse 71 07/18/2024 8:50 AM EDT Temperature 36.4 ??C (97.5 ??F) 07/18/2024 8:45 AM ED T Respiratory Rate 16 07/18/2024 8:45 AM EDT Oxygen Saturation - - Inhaled Oxygen Concentration - - Weight 107 kg (236 lb) 07/18/2024 8:45 AM EDT Height 177.8 cm (5' 10 ) 07/18/2024 8:45 AM EDT Body Mass Index 33.86 07/18/2024 8:45 AM EDT Plan of Treatment Upcoming Encounters Date Type Department Care Team (Late st Contact Info) Description 08/17/2024 11:30 AM EDT Office Visit Orthopedic Surgery [place] [address] [phone] Jones Batista MD [address] [address] 10/26/2024 1:15 PM EDT Office Visit Bariatric Surgery [facility] [address] [phone] Savage Rutledge MD [address] [address] 01/17/2025 9:30 AM EST Office Visit Adult Medicine [address] [phone] Radha Nash MD [address] [place] [phone] Health Maintenance Due Date Last Done Comments Breast Cancer Screening 1969 Hepatitis B Vaccines (1 of 3 - 19+ 3-dose series) 1988 Pneumococcal Vaccine: 50+ Years (2 of 2 - PCV) 03/02/2019 03/02/2018 Zoster Vaccines (1 of 2) 06/02/2019 Colorectal Cancer Screening: FIT-DNA (Cologuard) 01/24/2022 Diabetes: Annual Retina Eye Exam 05/21/2023 05/20/2022 Depression Screening 02/24/2024 02/23/2023, 02/23/19 Diabetes: Annual Foot Exam 09/07/2024 09/08/2023, Social Influencers of Health Screening 01/06/2025 01/07/2024 Diabetes: Blood Sugar Control Test (HGBA1C) 01/18/2025 07/19/2024, 02/01/2024, 11/25/2023, Additional history exists Diabetes: Annual Urine Albumin-Creatinine Ratio (uACR) 07/19/2025 07/19/2024, 03/03/2023, 03/03/2023 Diabetes: Annual GFR (Glomerular Filtration Rate) 07/19/2025 07/19/2024, 02/01/2024, 11/25/2023, Additional history exists Hypertension/CHF/CAD Annual BMP Blood Test 07/19/2025 07/19/2024, 02/01/2024, 11/25/2023, Additional history exists DTaP,Tdap,and Td Vaccines (2 - Td or Tdap) 04/08/2026 04/08/2016 Cervical Cancer Screening: HPV 06/18/2026 06/18/2021 Cholesterol Screening (Lipid Panel) 07/19/2029 07/19/2024, 02/01/2024, 11/25/2023, Additional history exists HIV Screening Completed 04/08/2016 Hepatitis C Screening Completed 04/08/2016 Pneumococcal Vaccine: Pediatrics (0 to 5 Years) and At-Risk Patients (6 to 64 Years) Discontinued 03/02/2018 COVID-19 Vaccine Discontinued 09/25/2020 Colorectal Cancer Screening: Colonoscopy Discontinued 06/04/2021 Influenza Vaccine Completed 11/25/2023, , 01/29/2022, Additional history exists HIB Vaccines Aged Out No longer eligi ble based on patient's age to complete this topic HPV Vaccines Aged Out No longer eligi ble based on patient's age to complete this topic Hepatitis A Vaccines Aged Out No long er eligible based on patient's age to complete this topic IPV Vaccines Aged Out No longer eligi ble based on patient's age to complete this topic MMR Vaccines Aged Out No longer eligi ble based on patient's age to complete this topic Meningococcal ACWY Vaccine Aged Out N o longer eligible based on patient's age to complete this topic Meningococcal B Vaccine Aged Out No l onger eligible based on patient's age to complete this topic RSV Immunization Patients Under 20 months Aged Out No longer eligible based on patient's age to complete this topic Varicella Vaccines Aged Out No longer eligible based on patient's age to complete this topic Goals Goal Patient Goal Type Associated Problems Recent Progress Patient-Stated? Author STG in 4-5 weeks General No Leandra Bojorquez, PT Note: Short Term Goals 1. Initiate home exercise program. 2. Pain will be improved by 2-3 points on VAS. 3. Patient will improve hip/knee strength by 1/3 grade on manual muscle testing. 4. Patient will improve hip ROM to 100 deg. LTG in 8-12 weeks General No Leandra Bojorquez, PT Note: Long-Term Goals 1. Patient will be independent with home exercise program to maintain therapeutic gains. 2. Patient will be able to walk 20 min or more with min to no pain 3. Patient will be able to stand for 20 min or more to do IADLs Procedures Procedure Name Priority Date/Time Associated Diagnosis Comments LIPID PANEL WITH REFLEX TO DIRECT LDL Routine 07/19/2024 9:34 AM EDT Type 2 diabetes mellitus with neurological manifestation ([facility]/HCC V24, CMS/HCC V28) COMPREHENSIVE METABOLIC PANEL Routine 07/19/2024 9:34 AM EDT Type 2 diabetes mellitus with neurological manifestation (CMS/HCC V24, CMS/HCC V28) HEMOGLOBIN A1C Routine 07/19/2024 9:34 AM EDT Type 2 diabetes mellitus with neurological manifestation (CMS/HCC V24, CMS/HCC V28) MICROALBUMIN CREATININE URINE RATIO Routine 07/19/2024 9:34 AM EDT Type 2 diabetes mellitus with neurological manifestation (CMS/HCC V24, CMS/[facility] V28) INTERFERON GAMMA INTERPRETATION Routine 05/16/2024 9:21 AM EDT Adult general medical examination INTERFERON GAMMA ANTIGEN 2 Routine 05/16/2024 9:21 AM EDT Adult general medical examination INTERFERON GAMMA ANTIGEN 1 Routine 05/16/2024 9:21 AM EDT Adult general medical examination INTERFERON GAMMA MITOGEN Routine 05/16/2024 9:21 AM EDT Adult general medical examination INTERFERON GAMMA NIL Routine 05/16/2024 9:21 AM EDT Adult general medical examination INTERFERON GAMMA FOR TB, QUALITATIVE Routine 05/16/2024 9:21 AM EDT Adult general medical examination RHEUMATOID FACTOR Routine 05/03/2024 10: 46 AM EDT Cervicalgia Primary osteoarthritis of both knees Polyarthropathy Ankylosing spondylitis of multiple sites in spine ([facility] V24, [facility] V28) BORRELIA BURGDORFERI ANTIBODY Routine 05/03/2024 10:46 AM EDT Cervicalgia Primary osteoarthritis of both knees Polyarthropathy Ankylosing spondylitis of multiple sites in spine ([facility] V24, CMS/[facility] V28) HLA-B27 ANTIGEN Routine 05/03/2024 10:46 AM EDT Cervicalgia Primary osteoarthritis of both knees Polyarthropathy Ankylosing spondylitis of multiple sites in spine ([facility] V24, CMS/[facility] V28) SEDIMENTATION RATE Routine 05/03/2024 10 :46 AM EDT Cervicalgia Primary osteoarthritis of both knees Polyarthropathy Ankylosing spondylitis of multiple sites in spine ([facility] V24, CMS/[facility] V28) C-REACTIVE PROTEIN Routine 05/03/2024 10 :46 AM EDT Cervicalgia Primary osteoarthritis of both knees Polyarthropathy Ankylosing spondylitis of multiple sites in spine ([facility] V24, CMS/[facility] V28) ELLIE IFA WITH TITER AND PATTERN Routine 05/03/2024 10:46 AM EDT Cervicalgia Primary osteoarthritis of both knees Polyarthropathy Ankylosing spondylitis of multiple sites in spine (CMS/HCC V24, CMS/HCC V28) DIABETES FOOT EXAM Routine 09/08/2023 DEPRESSION SCREENING Routine 02/23/2023 HPV Routine 06/18/2021 HEPATITIS C SCREENING Routine 04/08/2016 HIV SCREENING Routine 04/08/2016 from Last 3 Months or Most Recently Relevant to Health Maintenance Results * Lipid panel with reflex to direct LDL (07/19/2024 9:34 AM EDT) Cholesterol 157 0 - 200 mg/dL LAB CHEMISTRY METHOD 07/19/2024 1:17 PM EDT [facility] Triglycerides 77 0 - 150 mg/dL LAB CHEMISTRY METHOD 07/19/2024 1:17 PM EDT [facility] HDL 51 >=40 mg/dL [facility]STR[facility] LDL Calculated 91 0 - 100 mg/dL LAB CHEMISTRY METHOD 07/19/2024 1:17 PM [facility] VLDL Cholesterol Saman 15.4 mg/dL LAB CHEMISTRY METHOD 07/19/2024 1:17 PM [facility] Non HDL Chol. (LDL+VLDL) 106 <145 mg/dL LAB CHEMISTRY METHOD 07/19/2024 1:17 PM [facility] Chol/HDL Ratio 3.1 0.0 - 4.4 LAB CHEMISTRY METHOD 07/19/2024 1:17 PM [facility] Blood Venous blood specimen / Unknown Venipuncture / Unknown 07/19/2024 9:34 AM EDT 07/19/2024 9:34 AM EDT us Radha Chelo Portillo-Nichols MD LAB BLOOD ORDERABL ES Final Result [facility] [address] [place] [address], [place] [phone] * (ABNORMAL) Microalbumin creatinine urine ratio (07/19/2024 9:34 AM EDT) Creatinine, Urine 236.0 mg/dL LAB CHEMISTRY METHOD 07/19/2024 1:30 PM EDT [facility] Microalb, Ur 29.2(H) 0.0 - 29.0 mg/L LAB CHEMISTRY METHOD 07/19/2024 1:30 PM EDT [facility] Microalb/Crea t Ratio 12 <30 mg/g creat LAB CHEMISTRY METHOD 07/19/2024 1:30 PM EDT [facility] Urine Urine specimen obtained by clean catch procedure / Unknown Non-blood Collection / Unknown 07/19/2024 9:34 AM EDT 07/19/2024 9:34 AM EDT Radha Nash MD LAB URINE ORDERABL ES Final Result Performing Organization Address [facility]/ZIP Co de Phone Number [facility] [address] [place] [address], [place] [phone] * Hemoglobin A1c (07/19/2024 9:34 AM EDT) Hemoglobin A1C 5.5 <6.5 % LAB CHEMISTRY METHOD 07/19/2024 1:52 PM EDT [facility] Mean Bld Glu Estim. 111 mg/dL LAB CHEMISTRY METHOD 07/19/2024 1:52 PM EDT [facility] Blood Venous blood specimen / Unknown Venipuncture / Unknown 07/19/2024 9:34 AM EDT 07/19/2024 9:34 AM EDT us Radha Nash MD LAB BLOOD ORDERABL ES Final Result [facility] [address] [place] [address], * (ABNORMAL) Comprehensive metabolic panel (07/19/2024 9:34 AM EDT) Sodium 144 133 - 145 mmol/L LAB CHEMISTRY METHOD 07/19/2024 1:17 PM [facility] Potassium 4.1 3.5 - 5.5 mmol/L LAB CHEMISTRY METHOD 07/19/2024 1:17 PM [facility] Chloride 111(H) 96 - 110 mmol/L LAB CHEMISTRY METHOD 07/19/2024 1:17 PM [facility] CO2 27 21 - 32 mmol/L LAB CHEMISTRY METHOD 07/19/2024 1:17 PM [facility] Anion Gap 6 3 - 11 LAB CHEMISTRY METHOD 07/19/2024 1:17 PM [facility] Glucose 94 70 - 100 mg/dL LAB CHEMISTRY METHOD 07/19/2024 1:17 PM [facility] BUN 12 5 - 25 mg/dL LAB CHEMISTRY METHOD 07/19/2024 1:17 PM [facility] Creatinine 0.80 0.50 - 1.10 mg/dL LAB CHEMISTRY METHOD 07/19/2024 1:17 PM [facility] eGFR 87 >=60 mL/min/1. 73m2 LAB CHEMISTRY METHOD 07/19/2024 1:17 PM [facility] Comment:Calculation based on the Chronic Kidney Disease Epidemiology Collaboration (CKD-EPI) equation refit without adjustment for race. BUN/Creatinine Ratio 15.0 LAB CHEMISTRY METHOD 07/19/2024 1:17 PM [facility] Calcium 9.0 8.5 - 10.5 mg/dL LAB CHEMISTRY METHOD 07/19/2024 1:17 PM EDT [facility] AST (SGOT) 24 10 - 42 unit/L LAB CHEMISTRY METHOD 07/19/2024 1:17 PM EDT [facility] ALT (SGPT) 31 10 - 60 unit/L LAB CHEMISTRY METHOD 07/19/2024 1:17 PM EDT [facility] Alkaline Phosphatase 87 42 - 121 unit/L LAB CHEMISTRY METHOD 07/19/2024 1:17 PM EDT [facility] Total Protein 6.2 6.0 - 8.0 g/dL LAB CHEMISTRY METHOD 07/19/2024 1:17 PM EDT [facility] Albumin 3.3 3.2 - 5.0 g/dL LAB CHEMISTRY METHOD 07/19/2024 1:17 PM EDT [facility] Total Bilirubin 0.8 0.0 - 1.4 mg/dL LAB CHEMISTRY METHOD 07/19/2024 1:17 PM EDT [facility] Blood Venous blood specimen / Unknown Venipuncture / Unknown 07/19/2024 9:34 AM EDT 07/19/2024 9:34 AM EDT us Radha Nash MD LAB BLOOD ORDERABL ES Final Result [facility] [address] [place] [address], * Interferon gamma interpretation (05/16/2024 9:21 AM EDT) [facility] Quantiferon Plus Interpretation Negative Negative LAB CHEMISTRY METHOD 05/17/2024 10:40 AM EDT [facility] Blood Venous blood specimen / Unknown Venipuncture / Unknown 05/16/2024 9:21 AM EDT 05/16/2024 9:21 AM EDT Radha Nash MD LAB BLOOD ORDERABL ES Final Result [facility] [address] [place] [address], [place] [phone] * Interferon gamma antigen 2 (05/16/2024 9:21 AM EDT) Blood Venous blood specimen / Unknown Venipuncture / Unknown 05/16/2024 9:21 AM EDT 05/16/2024 9:21 AM EDT Radha Nash MD LAB BLOOD ORDERABL ES Final Result Performing Organization Address City/[facility]/ZIP Co de Phone Number [facility] [address] [place] [address], [place] [phone] * Inteferon gamma antigen 1 (05/16/2024 9:21 AM EDT) Blood Venous blood specimen / Unknown Venipuncture / Unknown 05/16/2024 9:21 AM EDT 05/16/2024 9:21 AM EDT Radha Nash MD LAB BLOOD ORDERABL ES Final Result Performing Organization Address City/[facility]/ZIP Co de Phone Number [facility] [address] [place] [address], [place] [phone] * Interferon gamma mitogen (05/16/2024 9:21 AM EDT) Blood Venous blood specimen / Unknown Venipuncture / Unknown 05/16/2024 9:21 AM EDT 05/16/2024 9:21 AM EDT Radha Nash MD LAB BLOOD ORDERABL ES Final Result Performing Organization Address City/[facility]/ZIP Co de Phone Number [facility] [address] [place] [address], [place] [phone] * Interferon gamma NIL (05/16/2024 9:21 AM EDT) Blood Venous blood specimen / Unknown Venipuncture / Unknown 05/16/2024 9:21 AM EDT 05/16/2024 9:21 AM EDT us Radha Nash MD LAB BLOOD ORDERABL ES Final Result Performing Organization Address [facility]/ZIP Co de Phone Number [facility] [address] [place] [address], [place] [phone] * ELLIE IFA with titer and pattern (05/03/2024 10:46 AM EDT) ELLIE Negative Negative 05/04/2024 10:44 AM EDT [facility] Blood Venous blood specimen / Unknown Venipuncture / Unknown 05/03/2024 10:46 AM EDT 05/03/2024 11:34 AM EDT us Tal Davis DO LAB BLOOD ORDERABLES Final Resul t Performing Organization Address [facility]/ZIP Co de Phone Number [facility] [address] [place] [address], [place] [phone] * HLA-B27 antigen (05/03/2024 10:46 AM EDT) HLA-B27 Comment SEEBELOW 05/05/2024 9:47 AM EDT [facility] Comment: Rare false-positive HLA-B27 results can occur due to cross-reactivity with HLA-B7; therefore, we recommend all positive results be confirmed by an alternative and more specific method (molecular typing). HLA B27 NEGATIVE 05/05/2024 9:47 AM EDT [facility] Comment: Test performed at [facility], [address] [facility] [address], [place], [place] ??[address] ? [phone] Blood Venous blood specimen / Unknown Venipuncture / Unknown 05/03/2024 10:46 AM EDT 05/03/2024 11:39 AM EDT us Tal Davis DO LAB MOLECULAR DIAGNOSTICS ORDERA BLES Final Result Performing Organization Address City/[facility]/ZIP Co de Phone Number [facility] [address] [place] [address] * Borrelia burgdorferi antibody (05/03/2024 10:46 AM EDT) [facility] Lyme Ab Negative Negative LAB CHEMISTRY METHOD 05/03/2024 2:04 PM EDT [facility] Comment: No laboratory evidence of infection with B. burgdorferi (Lyme disease). Negative results may occur in patients recently infected (<=14 days) with B. burgdorferi. ??If recent infection is suspected, repeat testing on a new sample collected in 7-14 days is recommended. Blood Venous blood specimen / Unknown Venipuncture / Unknown 05/03/2024 10:46 AM EDT 05/03/2024 11:34 AM EDT Tal Davis DO LAB BLOOD ORDERABLES Final Resul t Performing Organization Address [facility] Co de Phone Number [facility] [address] [place] [address], [place] [phone] * Sedimentation rate (05/03/2024 10:46 AM EDT) [facility] Sed Rate 23 0 - 30 mm/hr LAB HEMETOLOGY METHOD 05/03/2024 1:40 PM EDT [facility] Blood Venous blood specimen / Unknown Venipuncture / Unknown 05/03/2024 10:46 AM EDT 05/03/2024 11:43 AM EDT Tal Davis DO LAB BLOOD ORDERABLES Final Resul t Performing Organization Address [facility] Co de Phone Number [facility] [address] [place] [address], [place] [phone] * Rheumatoid factor (05/03/2024 10:46 AM EDT) [facility] Rheumatoid Factor <10.0 <15.0 I Unit/mL LAB CHEMISTRY METHOD 05/03/2024 1:14 PM EDT [facility] Blood Venous blood specimen / Unknown Venipuncture / Unknown 05/03/2024 10:46 AM EDT 05/03/2024 11:34 AM EDT Tal Davis DO LAB BLOOD ORDERABLES Final Resul t Performing Organization Address City/[facility]/ZIP Co de Phone Number [facility] [address] [place] [address], [place] [phone] * C-reactive protein (05/03/2024 10:46 AM EDT) [facility] C-Reactive Protein <0.29 <=0.50 mg/dL LAB CHEMISTRY METHOD 05/03/2024 1:14 PM EDT [facility] Blood Venous blood specimen / Unknown Venipuncture / Unknown 05/03/2024 10:46 AM EDT 05/03/2024 11:34 AM EDT Tal Davis DO LAB BLOOD ORDERABLES Final Resul t Performing Organization Address [facility]/ZIP Co de Phone Number [facility] [address] [place] [address], [place] [phone] * Diabetes Foot Exam (09/08/2023) [facility] Diabetes: Annual Foot Exam abstracted Historical Provider HEALTH MAINTENANCE Final Result * Depression Screening (02/23/2023) [facility] Depression Screening abstracted Historical Provider HEALTH MAINTENANCE Final Result * Cervical Cancer Screening: HPV (06/18/2021) [facility] Cervical Cancer Screening: HPV negative, abstracted Historical Provider HEALTH MAINTENANCE Final Result * HIV Screening (04/08/2016) [facility] HIV Screening abstracted us Historical Provider HEALTH MAINTENANCE Final Result * Hepatitis C Screening (04/08/2016) Hepatitis C Screening abstracted Historical Provider HEALTH MAINTENANCE Final Result from Last 3 Months or Most Recently Relevant to Health Maintenance Insurance [address] [place] [id number] [place] [address] HEALTH PLAN Advance Directives Documents on File Type Date 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
== END 2024-07-27 10:43 | disposition home or self-care (01) ==
LOC: HO.HSMS 09:51
PROVIDERS: PCP Internal Medicine; Visit Provider Nurse Practitioner Family
DX: G43.009 Migraine without aura, not intractable, without status migrainosus (principal); M54.2 Cervicalgia; G47.9 Sleep disorder, unspecified
CPT/HCPCS: 99214

== ENCOUNTER → 2024-07-27 09:50 | Outpatient (BNVA) | payer OTHER, SELFPAY | PROVIDERS: PCP Internal Medicine; Visit Provider Nurse Practitioner Family | DX: G43.009 Migraine without aura, not intractable, without status migrainosus (principal); M54.2 Cervicalgia; G47.9 Sleep disorder, unspecified | CPT/HCPCS: 99212 ==

== ENCOUNTER 2025-02-04 20:37 | Emergency (ER) | payer OTHER, SELFPAY ==
--- OUTSIDE RECORDS SUMMARY | 2025-02-01 15:30 | XMS_ITS | Encounter Summary ---
Author Organization [facility] Address [address] [place] [address] Care Team Providers Care Outsole Flexer Name Role Phone Radha Nash MD Primary Care Prov ider Reason for Visit * Reason Comments Post-op Right Bursa Hip 10/31 Encounter Details Date Type Department Care Team (Late st Contact Info) Description 02/01/2025 3:30 PM EST Office Visit Orthopedic Surgery - [place] [address] [phone] Jones Batista MD [address] [address] S/P repair of abductor muscle of right hip (Primary Dx); Follow-up exam; Primary osteoarthritis of left knee; Chronic instability of left knee Social History Tobacco Use Types Packs/Day Years Used Date Smoking Tobacco: Never Smokeless Tobacco: Never Alcohol Use Standard Drinks/Week Comments No 0 [...] care for your loved ones. For example, director maternal child or elderly care for an older adult? [...] Date Recorded What is your living situation? Unrecognized valu e 01/07/2024 Comments No Sex and Gender Information Value Date Recorded Sex Assigned at Not on file Legal Sex Female 5:08 AM EST Gender Identity Not on file Sexual Orientation Not on file documented as of this encounter Progress Notes * Jones Batista MD - 02/01/2025 3:30 PM EST Images from the original note were not included. * Jones Batista MD - 02/01/2025 3:30 PM EST [facility] Date: 02/01/2025 Reason for visit: S/P right hip bursectomy, abductor repair, ITB lengthening 10/31/2024; follow-up left knee severe valgus osteoarthritis with instability [employer]: Azeri - granddaughter Manuela HPI: Brianna Grove is a 54 y.o. year old female 3 months following right hip abductor repair. I last saw her 12/13/2024 at the 6-week appointment where she was doing good. She was attending physicaltherapy on the third floor. She was to continue hip abductor precautions for 3 months. We will consider left knee cortisone injection or definitive knee replacement surgery if symptoms persist or worsen. She returns today with overall right hip feels good. No pain. Overall right knee replacement also doing well no pain. I did receive a message from physical therapy that she has not attended several sessions. She tells me that she has had progressive pain and instability involving her left knee and her back which has kept her from attending physical therapy appointments. She is not requiring any regular pain medications. Today she is ambulating with a cane. Exam: There were no vitals filed for this visit. Well appearing female, no apparent distress, alert and oriented. Gait examination she walks with antalgic valgus thrust left lower extremity unassisted. On examination right hip she has a well-healed lateral incision. No swelling, erythema, or tenderness. Equivalent 4+/5 strength hip abduction. No hip or groin pain on rotation. On examination of the right knee she has no effusion, no significant effusion. Knee range of motion0 to 125 degrees. Knee stable to varus valgus rest throughout range of motion. Stable to anterior posterior drawer. No tapping at 90 degrees gravity flexion. She is able to maintain full straight legraise with 5/5 strength. Distally neurovascular intact. On examination left knee she has a mild effusion. Knee range of motion is 3 to 120 degrees. Correctable valgus. 1-2+ opening medially and laterally to valgus varus test at 30 degrees. Stable to anterior and posterior drawer. Tenderness about the lateral more than medial joint line, mild tenderness but minimal crepitus on patellar compression. No groin pain on rotation. No calf tenderness. Distally neurovascular intact. Labs: Lab Results Component Value Date WBC 6.4 10/05/2024 HCT 40.3 10/05/2024 PLT 214 10/05/2024 Lab Results Component Value Date NA 142 10/05/2024 K 4.1 10/05/2024 EGFR 87 10/05/2024 ALBUMIN 3.7 10/05/2024 BILITOT 0.8 10/05/2024 AST 23 10/05/2024 ALT 24 10/05/2024 ALKPHOS 89 10/05/2024 HGBA1C 5.5 07/19/2024 Lab Results Component Value Date INR 1.0 10/05/2024 Lab Results Component Value Date SEDRATE 23 05/03/2024 CRP <0.29 05/03/2024 RF <10.0 05/03/2024 ELLIE Negative 05/03/2024 Imaging: AP pelvis x-ray was obtained today and reviewed. These show no fracture involving the right greater trochanter. No significant arthritis involving either hip. No evidence of osteonecrosis. 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 Left knee severe valgus osteoarthritis with instability. Chronic lower back pain with lower extremity numbness and weakness. Gait instability with falls, cane ambulator. Hypertension. Hepatomegaly. NIDDM A1c 5.5%. GERD. Chronic constipation. Anxiety/depression, history of SI. Status post gastric sleeve 2021. Poor dentition. BMI 31-34. Plan: I discussed my findings, and I reviewed imaging studies with the patient and her granddaughter. Overall she is recovering well from right hip abductor repair and bursectomy. She seems to be more limited by her left knee now. I did print out and review home exercises focused on eccentric strengthening of hip abductors. This will also help in preparation for left knee replacement surgery. I also reviewed prior x-rays of her left knee which do show severe [id number] arthritis involvingthe lateral compartment. She has done very well following her right knee replacement surgery. She is hoping for similar results involving the left knee. Therefore we discussed and elected to proceed with scheduling left total knee replacement surgery. I did print out information for them to review. She will require preoperative labs, and clearance through PCP and dentist. Plan on overnight stay, cemented Baldemar PS/TS components, reinforced Aquacel dressing, same postop medications with strong bowel regimen. I will see her back at the preop appointment, no x-rays needed. Jones Batista MD 175 [facility], [address] [place] [address] W: [phone] F: [phone] Portions of this note were dictated utilizing the speech recognition software. Electronically Signed By: Jones Batista MD 02/01/2025 3:54 PM EST documented in this encounter Plan of Treatment Upcoming Encounters Date Type Department Care Team ([facility] st Contact Info) Description 03/06/2025 1:00 PM EST Office Visit Orthopedic Surgery [facility] 175 [facility] [address] [place] [phone] Alexandria Diaz MD 175 [facility] [address] [place] [phone] 04/24/2025 1:45 PM EDT Office Visit Bariatric Surgery [address] [place] [phone] Savage Rutledge MD [address] [place] [phone] 04/27/2025 12:30 PM EDT Office Visit Adult Medicine [address] [phone] Radha Nash MD [address] [place] [phone] Scheduled Procedures Name Priority Associated Diagnoses Date/Ti hi ARTHROPLASTY KNEE TOTAL Primary osteoarthritis of left knee documented as of this encounter Goals Goal Patient Goal Type Associated Problems [...] weeks General No Leandra Bojorquez, PT Note: Senior Care Goals 1. Patient will be independent with home exercise program to maintain therapeutic gains. 2. Patient will be able to walk 20 min or more with min to no pain 3. Patient will be able to stand for 20 min or more to do IADLs Autogenerated Goal Care Plan Autogenerated Problem No Jones Batista MD documented as of this encounter Results * XR Pelvis 1-2 Views (02/01/2025 3:12 PM EST) Anatomical Region Laterality Modality Body, Pelvis Computed Radiogr aphy Narrative 02/02/2025 12:35 PM EST AP pelvis x-ray was obtained today and reviewed. These show no fracture involving the right greater trochanter. No significant arthritis involving either hip. No evidence of osteonecrosis. us Jones Batista MD IMG XR PROCEDURES Fin al Result documented in this encounter Visit Diagnoses Diagnosis S/P repair of abductor muscle of right hip- Primary Follow-up exam Unspecified follow-up examination Primary osteoarthritis of left knee Chronic instability of left knee documented in this encounter Orders Nursing Count Last Ordered Date First Orde red Date [id number] 02/01/2025 Case Request Count Last Ordered Date First Orde red Date CASE REQUEST OPERATING ROOM 1 02/01/2025 documented in this encounter Additional Health Concerns Active Problems Noted Date Diagnosed Date Autogenerated Problem 02/01/2025 Assessment Noted Time PHQ-9 Depression Total Score: 1 01/18/20 25 9:23 AM EST documented as of this encounter Care Teams Outsole Flexer Relationship Specialty Start Date End Date Radha Nash MD [address] [place] [phone] PCP - General Internal Medicine 12/09/21 documented as of this encounter
[2025-02-04 20:49] VITALS: BP 200/99; PULSE 91; RESP 18; TEMP 36.6; O2SAT 98; BMI 33.0
--- NOTE | 2025-02-04 20:50 | ED.BACK ---
HPI - Back Pain/Injury General Chief Complaint: Back Pain/Injury Stated Complaint: WAIST LEG AND FOOT PAIN Time Seen by Provider: 02/04/25 21:40 History of Present Illness ED Provider: Seble PRINCE Narrative: The patient is a 54-year-old woman who has a history of chronic low back pains. She says that she has had problems with her low back pain for several years and that she normally gets injections for her low back pain with some regular frequency. She says that she had 2 surgeries in the last several months that interfered with her regular back injections. She has therefore gone longer than usual without a back injection. She says that she takes her usual gabapentin as needed for pain. Despite this over the last 5 or 6 days she feels that the pain in her lower back is worse than usual. She denies any injury or trauma. She denies any fever, sweats, chills. She denies any bowel or bladder control symptoms. No abdominal pain, nausea, v Related Data Home Medications ?Medication ?Instructions ?Recorded ?Confirmed atorvastatin 40 mg tablet 40 mg PO BEDTIME 01/22/22 07/27/24 [facility] 07/27/[facility] [employer] strips) cholecalciferol (vitamin D3) 50 50 mcg PO DAILY 01/22/22 07/27/24 mcg (2,000 unit) capsule ergocalciferol (vitamin D2) 1,250 1,250 mcg PO QWEEK 01/22/22 07/27/24 mcg (50,000 unit) capsule gabapentin 600 mg tablet 600 mg PO QID 01/22/22 07/27/24 lancets 28 gauge (FreeStyle 01/22/22 07/27/24 Lancets) lisinopril 20 1 tab PO DAILY 01/22/22 07/27/24 mg-hydrochlorothiazide 25 mg tablet meloxicam 15 mg tablet 15 mg PO DAILY 01/22/22 07/27/24 metformin 1,000 mg tablet 1,000 mg PO BID 01/22/22 07/27/24 omeprazole 20 mg capsule,delayed 20 mg PO DAILY 01/22/22 07/27/24 release propranolol 20 mg tablet 20 mg PO TID 01/22/22 07/27/24 sertraline 100 mg tablet 100 mg PO DAILY 12/08/22 06/12/25 topiramate 100 mg tablet 100 mg PO BID 01/22/22 07/27/24 simethicone 80 mg chewable tablet 160 mg PO BID 01/26/22 07/27/24 (Gas Relief (simethicone)) Previous Rx's ?Medication ?Instructions ?Recorded cyclobenzaprine 10 mg tablet 10 mg PO BEDTIME PRN muscle spasm 08/30/22 #10 tabs magnesium oxide 400 mg (241.3 mg 400 mg PO BEDTIME 30 days #30 tabs 07/22/23 magnesium) tablet trazodone 50 mg tablet 50 mg PO BEDTIME PRN sleep #30 tabs 10/19/23 galcanezumab-gnlm 120 mg/mL 120 mg subcut Q30D 30 days #1 mL 07/27/24 subcutaneous pen injector (Emgality Pen) sumatriptan succinate 100 mg tablet 50 - 100 mg (0.5 - 1 x 100 mg) PO 07/27/24 .COMPLEX PRN migraine headache 30 days #12 tabs acetaminophen 500 mg capsule 1,000 mg (2 x 500 mg) PO Q8H PRN 02/04/25 fever or pain #14 caps cyclobenzaprine 10 mg tablet 10 mg PO TID PRN muscle spasm #16 02/04/25 tabs Allergies Allergy/AdvReac Type Severity Reaction Status Date / Time ibuprofen (From MOTRIN) Allergy Unknown ABDOMINAL Verified 02/04/25 20:53 PAIN PMFSH Past Medical History Surgical History H/O hernia repair Hx of appendectomy H/O wrist surgery Hx of laparoscopic adjustable gastric banding Family History Family History Mother Cancer Maternal Grandmother Cancer Social History Social History Alcohol intake: never Patient Tobacco Use Status: Never used Tobacco Advance Directives: No Advance Directives Information Provided: No Do you have a plan to hurt others: No Plan Physical Exam Vital Signs: Vital Signs: Last Vital Signs Temp 97.8 F 02/04/25 20:49 Pulse 91 02/04/25 20:49 Resp 18 02/04/25 20:49 BP 200/99 H 12/21/25 20:49 Pulse Ox 98 02/04/25 20:49 O2 Del Method Room Air 02/04/25 20:49 BMI result Body Mass Index 33.0 Const: Other: The patient is a somewhat chronically ill-appearing 54-year-old. She looks older than her age. She does not appear obviously acutely ill however. She does not appear uncomfortable or unwell in any obvious way. HEENT: Other: The face is symmetrical. Mucous membranes moist. Eyes: Other: Pupils are round equal, conjunctivae are clear, extraocular movements intact Neck: Neck: Yes normal visual inspection and Yes full ROM Resp: Effort & Inspection: normal respiratory effort Auscultation: clear to auscultation bilaterally Cardio: Rate: regular rate Heart sounds: S1 normal heart sound present and S2 normal heart sound present GI: Other: The abdomen is soft and nontender Back/Spine/Pelvis: Other: generalized low back tenderness across the lower back. Skin: Other: The skin is dry and unremarkable Neuro: Other: The patient is awake and alert with a normal mental status. Cranial nerves are grossly intact. She has normal use of her upper extremities. She has 2+ reflexes at both knees. She has minimal ankle jerks on either side. Toes go down bilaterally. She seems to have intact strength in the legs, grossly intact sensation. Extrem: Other: no peripheral edema. She is moving all of the joints of the lower extremities normally. Straight leg raise test and contralateral straight leg raise test are unremarkable. Course Course Course Narrative: This is a Rapid Medical Examination (RME) performed by Karo Wynne NP in triage. Full assessment, plan deferred to broom maker. inspector and clipper services utilized. 54-year-old female medical history significant for hypertension, hyperlipidemia, diabetes presents to the ED for evaluation of low back pain on both sides for roughly 4 days. Patient has chronic back pain, no new injury or trauma. She has missed the routine injection for pain as the doctor is moving. Pain happens suddenly. Pain radiates down both posterior legs. Pain 8/10. Worse at night. Pain has chronic reported leg weakness without her injections, so has felt legs are weaker x 4 days. Denies urinary sx, no urinary incontinence. No fever, chills. No abdominal pain. Fell a little while ago because her leg fell asleep. Fell onto right hip. No head strike, LOC, neck pain. At home for pain utilized: Gabapentin which is not helping. Also tried a muscle relaxant without relief. Plan: Eval in main ED, pain meds. Medical Decision Making Medical Decision Making [facility] Narrative: The patient is a 54-year-old woman with a history of chronic low back problems who has had worsening low back pain over the last 5 or 6 days. She says that she has had low back problems for several years and normally gets what I assume or steroid injections. She says that she has been off of her usual schedule of injections over the last several months because of right knee replacement surgery and a 2nd surgery in the region of her right hip which she was not really able to characterize. I do not feel she is exhibiting any red flag symptoms of a concerning exacerbation of chronic low back pain. I think this is most likely an exacerbation of chronic low back pain without any neurological compromise or infectious process. I will prescribe acetaminophen and cyclobenzaprine for her to use in addition to her gabapentin. She apparently is not tolerant of nonsteroidal anti-inflammatories. She is advised to contact her primary care doctor's office tomorrow and also her back doctor's office to discuss these symptoms further. Discharge Plan Discharge Clinical Impression: Acute exacerbation of chronic low back pain Patient Disposition: Home, Self-Care Additional Instructions: I have sent a prescription for acetaminophen which you may take every 8 hours as needed for pain. I have also sent a prescription for the muscle relaxer cyclobenzaprine which you may take up to 3 times a day as needed for pains. No driving on this medication. Continue your gabapentin. Please contact your primary care doctor's office in the morning for a follow up appointment to help manage this ongoing pain. Also follow up with your back doctor's office. Return to the emergency room if significantly worse. Prescriptions: New cyclobenzaprine 10 mg tablet 10 mg PO TID PRN (Reason: muscle spasm) Qty: 16 0RF acetaminophen 500 mg capsule 1,000 mg PO Q8H PRN (Reason: fever or pain) Qty: 14 0RF No Action trazodone 50 mg tablet 50 mg PO BEDTIME PRN (Reason: sleep) Qty: 30 6RF cyclobenzaprine 10 mg tablet 10 mg PO BEDTIME PRN (Reason: muscle spasm) Qty: 10 0RF (DME) Freestyle [employer] Strip See Rx Instructions .Route Rx Instructions: As directed (DME) lancets [FreeStyle Lancets] 28 gauge misc See Rx Instructions .Route Rx Instructions: As directed atorvastatin 40 mg tablet 40 mg PO BEDTIME lisinopril-hydrochlorothiazide 20-25 mg tablet 1 tab PO DAILY metformin 1,000 mg tablet 1,000 mg PO BID gabapentin 600 mg tablet 600 mg PO QID propranolol 20 mg tablet 20 mg PO TID topiramate 100 mg tablet 100 mg PO BID omeprazole 20 mg capsule,delayed release(DR/EC) 20 mg PO DAILY cholecalciferol (vitamin D3) 50 mcg (2,000 unit) capsule 50 mcg PO DAILY ergocalciferol (vitamin D2) 1,250 mcg (50,000 unit) capsule 1,250 mcg PO QWEEK meloxicam 15 mg tablet 15 mg PO DAILY sertraline 100 mg tablet 100 mg PO DAILY simethicone [Gas Relief (simethicone)] 80 mg tablet,chewable 160 mg PO BID magnesium oxide 400 mg (241.3 mg magnesium) tablet 400 mg PO BEDTIME 30 Days Qty: 30 6RF Rx Instructions: may hold for loose stools Emgality Pen 120 mg/mL pen injector 120 mg subcut Q30D 30 Days Qty: 1 6RF sumatriptan succinate 100 mg tablet 50 - 100 mg PO .COMPLEX PRN (Reason: migraine headache) 30 Days Qty: 12 6RF Rx Instructions: 50 - 100 mg orally at onset of headache, may repeat in 2 hrs PRN; max 2 tabs per day or 4 tabs/week (may take with Ibuprofen) Referrals: Natalya Polanco MD [Primary Care Provider, Internal Medicine] Print Language: Tajik
--- OUTSIDE RECORDS SUMMARY | 2025-02-04 22:04 | XMS_ITS | Encounter Summary ---
[facility] [address] [place] [address] Care Team Providers Care Telecommunications Cable Jointer Name Role Phone Radha Nash MD Primary Care Prov ider Reason for Visit * Reason Onset Date Comments Back Pain 01/22/2025 Encounter Details Date Type Department Care Team (Late st Contact Info) Description 01/22/2025 Telephone Adult Medicine [facility] [address], [place] [phone] Radha Nash MD [address], [place] Social History Tobacco Use Types Packs/Day Years [...] do you feel lonely or isolated from ose around you? Never 01/07/2024 Food Risk [...] care for your loved ones. For example, child care associate teacher or elderly care for an older adult? [...] on file documented as of this encounter Plan of Treatment Upcoming Encounters Date Type Department Care Team (Late st Contact Info) Description 03/06/2025 1:00 PM EST Office Visit Orthopedic Surgery - [place] [address] [phone] Alexandria Diaz MD [address] [facility] [address] [place] [address] 04/24/2025 1:45 PM EDT Office Visit Bariatric Surgery - [place] [address] [place] [phone] Savage Rutledge MD [address] [place] [phone] 04/27/2025 12:30 PM EDT Office Visit Adult Medicine [facility] [address], [place] [phone] Radha Nash MD [address] [place] [address] Scheduled Procedures Name Priority Associated Diagnoses Date/Ti me ARTHROPLASTY KNEE TOTAL Primary osteoarthritis of left [...] weeks General No Leandra Bojorquez, PT Note: Usp Goals 1. Patient will be independent with home exercise program to maintain therapeutic gains. 2. Patient will be able to walk 20 min or more with min to no pain 3. Patient will be able to stand for 20 min or more to do IADLs documented as of this encounter Visit Diagnoses Not on filedocumented in this encounter Additional Health Concerns Assessment Noted Time PHQ-9 Depression Total Score: 1 01/18/20 25 9:23 AM EST documented as of this encounter Care Teams Telecommunications Cable Jointer Relationship Specialty Start Date End Date Radha Nash MD [address] [place] [address] PCP - General Internal Medicine 12/09/21 documented as of this encounter
--- OUTSIDE RECORDS SUMMARY | 2025-02-04 22:04 | XMS_ITS | Clinical Summary ---
Author Organization 175 [facility] Address [address] [place] [address] Phone Care Team Providers Care Replanter Name Role Phone Radha Nash MD Primary Care Prov ider Allergies No known active allergies Medications galcanezumab-g nlm (Emgality Pen) 120 mg/mL injection pen Inject 1 mL (120 mg total) under the skin. 023 Active MAGNESIUM OXIDE ORAL Take 40 mg by mouth 1 (one) time each day. 023 Active FREESTYLE LANCETS MISC 1 EA by extracorporeal route 1 (one) time each day. 022 Active ergocalciferol (VITAMIN D-2) 1,250 mcg (50,000 unit) capsule Take 1 capsule (50,000 Units total) by mouth 1 (one) time per week. 024 Active diphenhydrAMIN E (BENADRYL) 25 mg capsule Take 1 capsule (25 mg total) by mouth every 6 (six) hours if needed for sleep. Active traZODone (DESYREL) 50 mg tablet Take 1 tablet (50 mg total) by mouth. Active topiramate (Topamax) 50 mg tabletIndicati ons:Class 1 obesity due to excess calories with body mass index (BMI) of 34.0 to 34.9 in adult, unspecified whether serious comorbidity present Take 1 tablet (50 mg total) by mouth at bedtime. 30 each 2 Active omeprazole (PriLOSEC) [address] capsule Take 1 capsule (40 mg total) by mouth 1 (one) time each day. Do not crush or chew. 30 each Active atorvastatin (LIPITOR) 40 mg tablet Take 1 tablet (40 mg total) by mouth 1 (one) time each day. 90 each 025 2025 Active hydroCHLOROthi azide (HYDRODIURIL) 50 mg tablet Take 1 tablet (50 mg total) by mouth 1 (one) time each day. 90 each 2025 Active lisinopril (PRINIVIL,ZEST RIL) 40 mg tablet Take 1 tablet (40 mg total) by mouth 1 (one) time each day. 90 each 2025 Active sertraline (ZOLOFT) 100 mg tablet Take 1 tablet (100 mg total) by mouth 1 (one) time each day. 90 each 2025 Active acetaminophen (TYLENOL) 500 mg tablet Take 2 tablets (1,000 mg total) by mouth every 8 (eight) hours. 90 tablet Active senna-docusate (PERICOLACE) 8.6-50 mg per tablet Take 1-2 tablets at bedtime as needed for constipation. Recommended to take while taking narcotics. 20 tablet Active phentermine 15 mg capsuleIndicat ions:Class 1 obesity due to excess calories with body mass index (BMI) of 34.0 to 34.9 in adult, unspecified whether serious comorbidity present Take 1 capsule (15 mg total) by mouth 1 (one) time each day before breakfast. Max Daily Amount: 15 mg 30 each 025 2024 Active gabapentin (NEURONTIN) 600 mg tablet Take 1 tablet (600 mg total) by mouth 3 (three) times a day if needed (pain). 120 tablet Active metFORMIN (GLUCOPHAGE) 1,000 mg tablet Take 1 tablet (1,000 mg total) by mouth 1 (one) time each day with breakfast. Active blood sugar diagnostic (FreeStyle Lite Strips) test strip Use as instructed1 each by Other route 1 (one) time each day. 100 strip 3 Active blood sugar diagnostic (FreeStyle Lite Strips) test strip 1 each by Other route 1 (one) time each day. 2024 Discontinued(R eorder) gabapentin (NEURONTIN) 600 mg tablet Take 1 tablet (600 mg total) by mouth 3 (three) times a day if needed (pain). 120 tablet 025 2024 Discontinued(R eorder) metFORMIN (GLUCOPHAGE) 1,000 mg tablet Take 1 tablet (1,000 mg total) by mouth 2 (two) times a day with meals. 180 each 1 025 2024 Discontinued oxyCODONE (ROXICODONE) 5 mg immediate release tablet Take 1 tablet (5 mg total) by mouth every 4 (four) hours if needed for severe pain. Max Daily Amount: 30 mg 20 tablet 2024 Discontinued(T herapy completed) ondansetron (ZOFRAN) 8 mg tablet Take 1 tablet (8 mg total) by mouth every 8 (eight) hours if needed for nausea or vomiting. 20 tablet 025 2024 Discontinued(T herapy completed) saccharomyces boulardii (Florastor) 250 mg capsuleIndicat ions:Post-oper ative state,S/P repair of abductor muscle of right hip Take 1 capsule (250 mg total) by mouth 1 (one) time each day with breakfast. 10 capsule 2024 Discontinued(T herapy completed) Active Problems Problem Noted Date Diagnosed Date S/P repair of abductor muscle of right hip 11/15 Tear of right gluteus medius tendon 08/31/2024 Trochanteric bursitis of right hip 08/31/2024 Iliotibial band syndrome of right side Poor dentition 08/17/2024 Non-Luxembourger speaking patient 08/17/2024 Rotator cuff tendinitis, left 11/24/2023 Class 1 obesity due to exces s calories with serious comorbidity and body mass index (BMI) of 33.0 to 33.9 in adult 11/24/2023 Gait instability 04/01/2023 Post-traumatic osteoarthritis of right knee 03/18 Primary osteoarthritis of left knee 04/01/2023 Left hand pain 01/01/2023 S/P gastric sleeve procedure 01/06/2022 Hepatomegaly 01/01/2022 Overview (04/23/2023): 19.1 cm US 12/01/21 [facility] ED Pelvic pain 06/04/2021 Overview (04/23/2023): Last Assessment & Plan: Explained no clear Integrity Director etiology. Could be MSK or GI in nature. I recommended pelvic US to follow up given history of ovarian cysts. If normal, will refer back to PCP. GC/CT testing performed. 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 07/26/2020 Left carpal tunnel syndrome 10/16/2020 Microalbuminuria 02/29/2020 Hepatic steatosis 11/28/2018 Chronic constipation 11/01/2018 GERD with esophagitis 10/31/2018 Anxiety 07/22/2017 Depression 07/22/2017 Overview (04/23/2023): F/u [facility] Assessment & Plan (01/17/2025 9:56 AM EST): Currently on Trazodone, and Sertraline. Symptoms are well controlled. She follows with . Will continue to monitor. Assessment & Plan (07/18/2024 9:19 AM EDT): DDD (degenerative disc disease), lumbar 12/22/19 17 Herniated intervertebral disc of lumbar spine Vitamin D deficiency 05/28/2016 HTN (hypertension) 09/12/2015 Assessment & Plan (01/17/2025 9:56 AM EST): The patient's antihypertensive regimen is based on their underlying medical issues. At the time of this visit, the blood pressure is well controlled on Lisinopril, hctz. The patient is instructed to follow a low sodium diet and to follow up in 3 months. Orders: Comprehensive metabolic panel; Future Hemoglobin A1c; Future Lipid panel with reflex to direct LDL; Future Microalbumin creatinine urine ratio; Future Blood pressure monitor Assessment & Plan (07/18/2024 9:19 AM EDT): Hyperlipidemia 09/12/2015 Assessment & Plan (01/17/2025 9:56 AM EST): Given the patients cardiac risk profile, the patient requires an LDL cholesterol of less than 70. Currently on Atorvastatin 40mg. Will recheck levels. I have instructed the patient on the principles of a low cholesterol diet and the importance of regular exercise. Assessment & Plan (07/18/2024 9:19 AM EDT): Type 2 diabetes mellitus with renal manifestatio ns 09/12/2015 Encounters Date Type Department Care Team Description 02/01/2025 3:30 PM EST Office Visit Orthopedic Surgery - [place] [address] [facility] [address] [place] [address] Jones Batista MD S/P repair of abductor muscle of right hip (Primary Dx); Follow-up exam; Primary osteoarthritis of left knee; Chronic instability of left knee 01/24/2025 1:30 PM EST Treatment [facility] [place] [address] [facility] [address] [place] [address] Leandra Bojorquez, PT Tear of right gluteus medius tendon, subsequent encounter (Primary Dx) 01/22/2025 Telephone Adult Medicine [address] [phone] [place] arriolaCARA 01/22/2025 Telephone Adult Medicine [address] [phone] Radha Nash MD 01/17/2025 9:30 AM EST Office Visit Adult Medicine [address] [phone] Radha Nash MD Type 2 diabetes mellitus with other specified complication, with long-term current use of insulin (CMS/[facility] V24, CMS/[facility]ER[facility] V28) (Primary Dx); Hypertension, unspecified type; Mixed hyperlipidemia; Recurrent major depressive disorder, in partial remission (CMS/[facility]ER[facility] V24); Screening for depression 01/03/2025 1:30 PM EST Treatment [facility] [address] [phone] Leandra Bojorquez, PT Tear of right gluteus medius tendon, subsequent encounter (Primary Dx) 12/27/2024 1:30 PM EST Treatment [facility] [address] [phone] Refugio Steen, ENGAGEMENT SPECIALIST Tear of right gluteus medius tendon, subsequent encounter (Primary Dx) 12/25/2024 3:00 PM EST Treatment [facility] [address] [phone] Refugio Steen, ENGAGEMENT SPECIALIST Tear of right gluteus medius tendon, subsequent encounter (Primary Dx) 12/13/2024 2:00 PM EDT Office Visit Orthopedic Surgery [facility] [address] [phone] Jones Batista MD S/P repair of abductor muscle of right hip (Primary Dx) 12/05/2024 1:30 PM EDT Evaluation [facility] [place] 175 [facility] [address] [place] [address] Leandra Bojorquez, PT Tear of right gluteus medius tendon, subsequent encounter (Primary Dx); Iliotibial band syndrome of right side; Trochanteric bursitis of right hip; Chronic right hip pain 11/15/2024 2:30 PM EDT Office Visit Orthopedic Surgery - [place] 250 [address] [facility] [address] [place] [address] Jones Batista MD S/P repair of abductor muscle of right hip (Primary Dx); Post-operative state 11/07/2024 Telephone Bariatric Surgery - [place] 175 [facility] [address] [place] [address] Savage Rutledge MD 11/06/2024 Telephone Bariatric Surgery [facility] 175 [facility] [address] [place] [address] Savage Rutledge MD from Last 3 Months Immunizations Immunization Administration Dates Next Due Influenza Quadravalent, MDCK [...] OTHER; COMMENT: Tubal Ligation aborted-adhesions APPENDECTOMY PROCEDURE: MD APPENDECTOMY HERNIA REPAIR PROCEDURE: MD RPR 1ST INGUN HRNA AGE 6 MO-5 YRS REDUCIBLE BARIATRIC SURGERY TUBAL LIGATION JOINT REPLACEMENT 08/16/2023 - 09/15/2023 Right RT TKR Medical History Medical History Date Comments HTN [...] Depression 07/22/2017 DX:Depression; C OMMENT: F/u psychiatry [facility] Hepatic steatosis 11/28/2018 DX:Hepatic chao atosis Herniated intervertebral dis c of lumbar [...] 01/01/2022 DX:Hepatomegaly; COMMENT: 19.1 cm US 12/01/21 [facility] ED Arthritis Joint pain Anxiety GERD (gastroesophageal reflux disease) PONV (postoperative nausea a nd vomiting) Sleep apnea Family History Medical History Relation Name Comments [...] care for your loved ones. For example, children's aide or elderly care for an older adult? [...] on file Sexual Orientation Not on file Last Filed Vital Signs Vital Sign Reading Time Taken Comments Blood Pressure 130/85 01/17/2025 9:45 AM EST Pulse 79 01/17/2025 9:14 AM EST Temperature 36.6 C (97.9 F) 01/17/2025 9:14 AM EST Respiratory Rate 16 01/17/2025 9:14 AM EST Oxygen Saturation 99% 01/17/2025 9:14 AM EST Inhaled Oxygen Concentration - - Weight 106 kg (233 lb 6.4 oz) 01/17/2025 9:14 AM EST Height 177.8 cm (5' 10 ) 01/17/2025 9:14 AM EST Body Mass Index 33.49 01/17/2025 9:14 AM EST Plan of Treatment Upcoming Encounters Date Type Department Care Team (Late st Contact Info) Description 03/06/2025 1:00 PM EST Office Visit Orthopedic Surgery - [place] [address] [phone] Alexandria Diaz MD 175 [facility] 140 [place] [phone] 04/24/2025 1:45 PM EDT Office Visit Bariatric Surgery - [place] [address] [facility] [address] [place] [address] Savage Rutledge MD [address] [place] [phone] 04/27/2025 12:30 PM EDT Office Visit Adult Medicine [facility] [address] [place], [place] [phone] Radha Nash MD [address] [place], [place] Scheduled Procedures Name Priority Associated Diagnoses Date/Ti me ARTHROPLASTY KNEE TOTAL Primary osteoarthritis of left knee Health Maintenance Due Date Last Done Comments Breast Cancer Screening 1970 Drug Screen 1970 Non-Opioid Controlled Substance Agreement 1969 Hepatitis B Vaccines (1 of 3 - 19+ 3-dose series) 1988 Pneumococcal Vaccine: 50+ Years (2 of 2 - PCV) 03/02/2019 03/02/2018 RSV Immunization Adult Patients (1 - Risk 50-74 years 1-dose series) 06/02/2019 Zoster Vaccines (1 of 2) 06/02/2019 Colorectal Cancer Screening: FIT-DNA (Cologuard) 01/24/2022 Diabetes: Annual Retina Eye Exam 05/21/2023 05/20/2022 Social Influencers of Health Screening 01/06/2025 01/07/2024 Diabetes: Blood Sugar Control Test (HGBA1C) 01/18/2025 07/19/2024, 02/01/2024, 11/25/2023, Additional history exists Diabetes: Annual Urine Albumin-Creatinine Ratio (uACR) 07/19/2025 07/19/2024, 03/03/2023, 03/03/2023 Influenza Vaccine (#1) 2025 , 10/22/2022, 01/29/2022, Additional history exists Postponed from 10/16/2024 (Patient Refused) Diabetes: Annual GFR (Glomerular Filtration Rate) 10/05/2025 10/05/2024, 07/19/2024, 02/01/2024, Additional history exists Hypertension/CHF/CAD Annual BMP Blood Test 10/05/2025 10/05/2024, 07/19/2024, 02/01/2024, Additional history exists Diabetes: Annual Foot Exam 01/17/202601/17, 09/08/2023, 05/12/2022 DTaP,Tdap,and Td Vaccines (2 - Td or Tdap) 04/08/2026 04/08/2016 Cervical Cancer Screening: HPV 06/18/2026 06/18/2021 Cholesterol Screening (Lipid Panel) 07/19/2029 07/19/2024, 02/01/2024, 11/25/2023, Additional history exists HIV Screening Completed 04/08/2016 Hepatitis C Screening Completed 04/08/2016 COVID-19 Vaccine Discontinued 09/25/2020 Colorectal Cancer Screening: Colonoscopy Discontinued 06/04/2021 Depression Screening Completed 01/17/2025, 02/23/19 HIB Vaccines Aged Out No longer eligi [...] weeks General No Leandra Bojorquez, PT Note: [facility] Goals 1. Patient will be independent with home exercise program to maintain therapeutic gains. 2. Patient will be able to walk 20 min or more with min to no pain 3. Patient will be able to stand for 20 min or more to do IADLs Autogenerated Goal Care Plan Autogenerated Problem No Jones Batista MD Medical Devices Implanted Type Area Highway Painter Device Identifier Shelf Expiration Date Model / Serial / Lot [place] [employer] Heal[employer] 4.75mm - Snone - [id number] Implanted:Qty: 1 on 10/31/2024 by Jones Batista MD at [facility] Arthroscopy Implants Sports Med Right: Hip [employer] - ENDOSCOPY [id number] 03/08/2026 [id number] / NONE / [id number] [place] [employer] Healicoil 4.75mm - Sn/A - [id number] Implanted:Qty: 1 on 10/31/2024 by Jones Batista MD at [facility] [employer]th[employer] Implants Sports Med Right: Hip [employer] - ENDOSCOPY 07/02/2027 [id number] / N/A / [id number] Procedures Procedure Name Priority Date/Time Associated Diagnosis Comments XR PELVIS 1-2 VIEWS Routine 02/01/2025 3 :12 PM EST Follow-up exam S/P repair of abductor muscle of right hip Trochanteric bursitis of right hip Chronic right hip pain POC GLUCOSE Routine 01/17/2025 9:57 AM EST Type 2 diabetes mellitus with other specified complication, with long-term current use of insulin (CMS/HCC V24, CMS/HCC V28) XR PELVIS 1-2 VIEWS Routine 11/15/2024 1 :40 PM EDT Post-operative state S/P repair of abductor muscle of right hip COMPREHENSIVE METABOLIC PANEL Routine 10/05/2024 10:24 AM EDT Preop cardiovascular exam MICROALBUMIN CREATININE URINE RATIO Routine 07/19/2024 9:34 AM EDT Type 2 diabetes mellitus with neurological manifestation (CMS/HCC V24, CMS/HCC V28) HEMOGLOBIN A1C Routine 07/19/2024 9:34 AM EDT Type 2 diabetes mellitus with neurological manifestation (CMS/HCC V24, CMS/HCC V28) LIPID PANEL WITH REFLEX TO DIRECT LDL Routine 07/19/2024 9:34 AM EDT Type 2 diabetes mellitus with neurological manifestation (CMS/HCC V24, CMS/HCC V28) DIABETES FOOT EXAM Routine 09/08/2023 DEPRESSION SCREENING Routine 02/23/2023 HPV Routine 06/18/2021 HEPATITIS C SCREENING Routine 04/08/2016 HIV SCREENING Routine 04/08/2016 from Last 3 Months or Most Recently Relevant to Health Maintenance Results * XR Pelvis 1-2 Views (02/01/2025 3:12 PM EST) Only the most recent of2 resultswithin the time period is included. Anatomical Region Laterality Modality Body, Pelvis Computed Radiogr aphy Narrative 02/02/2025 12:35 PM EST AP pelvis x-ray was obtained today and reviewed. These show no fracture involving the right greater trochanter. No significant arthritis involving either hip. No evidence of osteonecrosis. us Jones Batista MD IMG XR PROCEDURES Fin al Result * POC glucose manually resulted (01/17/2025 9:57 AM EST) Blood Capillary blood specimen / Unknown 01/17/2025 9:57 AM EST us Radha Nash MD POINT OF CARE TEST ENTER/EDIT ORDERABLES Final Result * Comprehensive metabolic panel (10/05/2024 10:24 AM EDT) Sodium 142 133 - 145 mmol/L LAB CHEMISTRY METHOD 10/05/2024 1:01 PM [facility] Potassium 4.1 3.5 - 5.5 mmol/L LAB CHEMISTRY METHOD 10/05/2024 1:01 PM [facility] Chloride 110 96 - 110 mmol/L LAB CHEMISTRY METHOD 10/05/2024 1:01 PM [facility] CO2 26 21 - 32 mmol/L LAB CHEMISTRY METHOD 10/05/2024 1:01 PM [facility] Anion Gap 6 3 - 11 LAB CHEMISTRY METHOD 10/05/2024 1:01 PM [facility] Glucose 97 70 - 100 mg/dL LAB CHEMISTRY METHOD 10/05/2024 1:01 PM [facility] BUN 17 5 - 25 mg/dL LAB CHEMISTRY METHOD 10/05/2024 1:01 PM [facility] Creatinine 0.80 0.50 - 1.10 mg/dL LAB CHEMISTRY METHOD 10/05/2024 1:01 PM [facility] eGFR 87 >=60 mL/min/1. 73m2 LAB CHEMISTRY METHOD 10/05/2024 1:01 PM [facility] Comment:Calculation based on the Chronic Kidney Disease Epidemiology Collaboration (CKD-EPI) equation refit without adjustment for race. BUN/Creatinine Ratio 21.3 LAB CHEMISTRY METHOD 10/05/2024 1:01 PM [facility] Calcium 9.5 8.5 - 10.5 mg/dL LAB CHEMISTRY METHOD 10/05/2024 1:01 [facility] AST (SGOT) 23 10 - 42 unit/L LAB CHEMISTRY METHOD 10/05/2024 1:01 [facility] ALT (SGPT) 24 10 - 60 unit/L LAB CHEMISTRY METHOD 10/05/2024 1:01 PM [facility] Alkaline Phosphatase 89 42 - 121 unit/L LAB CHEMISTRY METHOD 10/05/2024 1:01 PM EDT [facility] Total Protein 6.7 6.0 - 8.0 g/dL LAB CHEMISTRY METHOD 10/05/2024 1:01 PM [facility] Albumin 3.7 3.2 - 5.0 g/dL LAB CHEMISTRY METHOD 10/05/2024 1:01 PM [facility] Total Bilirubin 0.8 0.0 - 1.4 mg/dL LAB CHEMISTRY METHOD 10/05/2024 1:01 PM T [facility] Blood Venous blood specimen / Unknown Venipuncture / Unknown 10/05/2024 10:24 AM EDT 10/05/2024 10:24 AM EDT us Radha Nash MD LAB BLOOD ORDERABL ES Final Result [facility] [address] [place] [address], [place] [phone] * Lipid panel with reflex to direct LDL (07/19/2024 9:34 AM EDT) Cholesterol 157 0 - 200 mg/dL LAB CHEMISTRY METHOD 07/19/2024 1:17 PM [facility] Triglycerides 77 0 - 150 mg/dL LAB CHEMISTRY METHOD 07/19[facility]24 [facility] HDL 51 >=40 mg/dL LAB CHEMISTRY METHOD 07/19/2024 [facility] LDL Calculated 91 0 - 100 mg/dL LAB CHEMISTRY METHOD 07/19/2024 1:17 PM [facility] VLDL Cholesterol Saman 15.4 mg/dL LAB CHEMISTRY METHOD 07/19/2024 1:17 PM EDT [facility] Non HDL Chol. (LDL+VLDL) 106 <145 mg/dL LAB CHEMISTRY METHOD 07/19/2024 1:17 PM EDT [facility] Chol/HDL Ratio 3.1 0.0 - 4.4 LAB CHEMISTRY METHOD 07/19/2024 1:17 PM EDT [facility] Blood Venous blood specimen / Unknown Venipuncture / Unknown 07/19/2024 9:34 AM EDT 07/19/2024 9:34 AM EDT Radha Nash MD LAB BLOOD ORDERABL ES Final Result Performing Organization Address City/[facility]/ZIP Co de Phone Number [facility] [address] [place] [address], [place] [phone] * (ABNORMAL) Microalbumin creatinine urine ratio (07/19/2024 9:34 AM EDT) Creatinine, Urine 236.0 mg/dL LAB CHEMISTRY METHOD 07/19/2024 1:30 PM EDT [facility] Microalb, Ur 29.2(H) 0.0 - 29.0 mg/L LAB CHEMISTRY METHOD 07/19/2024 1:30 PM EDT [facility] Microalb/Crea t Ratio 12 <30 mg/g creat LAB CHEMISTRY METHOD 07/19/2024 1:30 PM EDT [facility] Urine Urine specimen obtained by clean catch procedure / Unknown Non-blood Collection / Unknown 07/19/2024 9:34 AM EDT 07/19/2024 9:34 AM EDT Radha Nash MD LAB URINE ORDERABL ES Final Result Performing Organization Address [facility]/ZIP Co de Phone Number [facility] [address] [place] [address], [place] [phone] * Hemoglobin A1c (07/19/2024 9:34 AM EDT) Hemoglobin A1C 5.5 <6.5 % LAB CHEMISTRY METHOD 07/19/2024 1:52 PM EDT [facility] Mean Bld Glu Estim. 111 mg/dL LAB CHEMISTRY METHOD 07/19/2024 1:52 PM EDT [facility] Blood Venous blood specimen / Unknown Venipuncture / Unknown 07/19/2024 9:34 AM EDT 07/19/2024 9:34 AM EDT Radha Nash MD LAB BLOOD ORDERABL ES Final Result [facility] [address] [place] [address], [place] [phone] * Diabetes Foot Exam (09/08/2023) [facility] Diabetes: Annual Foot Exam abstracted [facility] Provider HEALTH MAINTENANCE Final Result * Depression Screening (02/23/2023) [facility] Depression Screening abstracted Result [facility] Provider HEALTH MAINTENANCE Final Result * Cervical Cancer Screening: HPV (06/18/2021) [facility] Cervical Cancer Screening: HPV negative, abstracted Result [facility] Provider HEALTH MAINTENANCE Final Result * HIV Screening (04/08/2016) [facility] HIV Screening abstracted Result [facility] Provider HEALTH MAINTENANCE Final Result * Hepatitis C Screening (04/08/2016) [facility] Hepatitis C Screening abstracted Result [facility] Historical Provider HEALTH MAINTENANCE Final Result from Last 3 Months or Most Recently Relevant to Health Maintenance Additional Health Concerns Active Problems Noted Date Diagnosed Date Autogenerated Problem 02/01/2025 [address] [place] [id number] [employer] Advance Directives Documents on File Type Date Recorded 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 Do not modify or discontinue any currently active code status orders. Care Teams Replanter Relationship Specialty Start Date End Date Radha Nash MD [address] [place] [phone] PCP - General Internal Medicine 12/09/21
--- OUTSIDE RECORDS SUMMARY | 2025-02-04 22:04 | XMS_ITS ---
Author Name [facility] Organization Unknown Care Team Organization Name Specialty Phone Email Start Date End Da te [facility] Radha Espinoza Primary Care 05/19/2022 10/04/2023 [facility] Debbie Mims Primary Care 12/23/[id number]
[2025-02-04 22:18] VITALS: BP 150/86; PULSE 70; RESP 20; TEMP 36.7; O2SAT 98
[2025-02-04 22:21] VITALS: BP 150/86; PULSE 70; RESP 20; TEMP 36.7; O2SAT 98
== END 2025-02-04 22:21 | disposition home or self-care (01) ==
PROVIDERS: Emergency Provider Emergency Medicine; PCP Internal Medicine
DX: G89.29 Other chronic pain (principal); M54.50 Low back pain, unspecified; E11.9 Type 2 diabetes mellitus without complications; I10 Essential (primary) hypertension; E78.5 Hyperlipidemia, unspecified; Z79.84 Long term (current) use of oral hypoglycemic drugs; Z79.899 Other long term (current) drug therapy; Z79.02 Long term (current) use of antithrombotics/antiplatelets
CPT/HCPCS: 99283